=== PATIENT | male | born 1975 | race Caucasian/White ===

== ENCOUNTER → 2017-03-15 | Outpatient (CLI) | payer OTHER ==
[~2017-03-15] MED LIST: ADVIN50050 INH; AZAT50TA17 PO; HYDR12.524 PO; PRED-301 PO; REVIEWED; SULF800T23 PO; TIOTCAP INH
== END | disposition home or self-care (01) ==
LOC: C.MAMM 07:54
PROVIDERS: ATTEND Internal Medicine Rheumatology
DX: M31.30 Wegener's granulomatosis without renal involvement (principal); T38.0X1A Poisoning by glucocorticoids and synthetic analogues, accidental (unintentional), initial encounter; X58.XXXA Exposure to other specified factors, initial encounter; E55.9 Vitamin D deficiency, unspecified; M25.551 Pain in right hip; M85.89 Other specified disorders of bone density and structure, multiple sites

== ENCOUNTER → 2017-07-04 | Outpatient (CLI) | payer OTHER ==
[2017-07-04 10:27] LABS: BASO % 0.3 %; BASO ABS # 0.04 K/uL (0-0.2); COMPLETE YES; EOS % 2.5 %; HEMATOCRIT 45.3 % (42-52); IG% 0.6 %; LYMPH % 17.3 %; LYMPH ABS # 2.14 K/uL (1.2-3.4); MEAN CELL VOLUME 88.5 fL (80-100); MEAN CORPUSCULAR HEMOGLOBIN 30.1 pg (25-34); MONO % 4.7 %; NEUT % 74.6 %; PLATELET COUNT 320 K/uL (130-400); RED BLOOD COUNT 5.12 M/uL (4.7-6.1); WHITE BLOOD COUNT 12.36 K/uL (4.8-10.8)
[2017-07-04 10:46] LABS: CALCIUM URINE 12.7 mg/dl
[2017-07-04 10:52] LABS: ALT/SGPT 21 U/L (12-78); AST/SGOT 12 U/L (15-37); BLOOD UREA NITROGEN 14 mg/dl (7-18); BUN/CREATININE RATIO 16.4 (10-20); CALCIUM 8.6 mg/dl (8.5-10.1); CARBON DIOXIDE 27 mmol/L (21-32); CHLORIDE 105 mmol/L (98-107); CREATININE 0.87 mg/dl (0.60-1.40); GLUCOSE 137 mg/dl (70-99); SODIUM 141 mmol/L (136-145)
[2017-07-04 10:55] LABS: ALB/GLOB RATIO 0.9 (0.9-2); ALKALINE PHOSPHATASE 73 U/L (45-117)
== END | disposition home or self-care (01) ==
LOC: C.LAB1850 08:47
PROVIDERS: ATTEND Internal Medicine Rheumatology
DX: Z00.00 Encounter for general adult medical examination without abnormal findings (principal); M31.30 Wegener's granulomatosis without renal involvement; T38.0X1A Poisoning by glucocorticoids and synthetic analogues, accidental (unintentional), initial encounter; X58.XXXA Exposure to other specified factors, initial encounter; E55.9 Vitamin D deficiency, unspecified; M25.551 Pain in right hip

== ENCOUNTER → 2017-09-09 | Outpatient (CLI) | payer OTHER ==
--- NOTE | 2017-09-09 13:03 | DIAGNOSTIC IMAGING REPORT ---
CHEST 2 VIEWS ROUTINE CLINICAL HISTORY: M31.30 Wegeners [id number] Restrictive lung diseaseto b dyspnea COMPARISON STUDY: CT chest dated 03/16/2016 FINDINGS: Diffuse bilateral fibrotic and atelectatic changes similar as compared to the prior study. Bilateral hilar fullness considered unchanged in the prior exam. There is consistent with patient's history of Mercedez's granulomatosis. Diaphragms are smooth. HISTORY: Volumes are diminished. IMPRESSION: Diffuse bilateral parenchymal fibrotic infiltrative change. Similar to minimally progressive compared to a prior CT scan of 03/16/2016. Appearance consistent with that of mildly progressive Mercedez's granulomatosis. The above report was generated using voice recognition software. It may contain grammatical, syntax or spelling errors. Electronically signed by: Patrick Bull M.D. 09/09/2017 1:02 PM Dictated Date/Time: 09/09/2017 12:57 PM
== END | disposition home or self-care (01) ==
LOC: C.RAD 12:22
PROVIDERS: ATTEND Internal Medicine
DX: M31.30 Wegener's granulomatosis without renal involvement (principal); J98.4 Other disorders of lung

== ENCOUNTER → 2017-11-08 | Outpatient (CLI) | payer OTHER ==
[2017-11-08 12:13] LABS: BASO % 0.2 %; BASO ABS # 0.03 K/uL (0-0.2); EOS % 1.3 %; EOS ABS # 0.16 K/uL (0-0.5); HEMATOCRIT 45.7 % (42-52); HEMOGLOBIN 15.3 g/dL (14.0-18.0); IG# 0.05 K/uL (0.00-0.02); LYMPH % 11.9 %; LYMPH ABS # 1.46 K/uL (1.2-3.4); MEAN CELL VOLUME 90.7 fL (80-100); MEAN CORPUSCULAR HEMOGLOBIN 30.4 pg (25-34); MEAN CORPUSCULAR HGB CONC 33.5 g/dl (32-36); MEAN PLATELET VOLUME 10.6 fL (7.4-10.4); MONO % 6.5 %; NEUT % 79.7 %; NEUT ABS # 9.76 K/uL (1.4-6.5); PLATELET COUNT 302 K/uL (130-400); RED CELL DISTRIBUTION WIDTH CV 13.6 % (11.5-14.5); RED CELL DISTRIBUTION WIDTH SD 44.5 fL (36.4-46.3); WHITE BLOOD COUNT 12.26 K/uL (4.8-10.8)
[2017-11-08 12:28] LABS: ALBUMIN 3.2 gm/dl (3.4-5.0); ALT/SGPT 31 U/L (12-78); AST/SGOT 17 U/L (15-37); CREATININE 0.92 mg/dl (0.60-1.40)
[2017-11-08 12:31] LABS: ALKALINE PHOSPHATASE 64 U/L (45-117); TOTAL PROTEIN 7.8 gm/dl (6.4-8.2)
== END | disposition home or self-care (01) ==
LOC: C.LAB1850 10:27
PROVIDERS: ATTEND Internal Medicine Rheumatology
DX: M31.30 Wegener's granulomatosis without renal involvement (principal); M81.8 Other osteoporosis without current pathological fracture; E55.9 Vitamin D deficiency, unspecified; J20.9 Acute bronchitis, unspecified

== ENCOUNTER 2023-10-03 16:57 | Inpatient (IN) ==
[2023-10-03] MEDS ORDERED: CEFEPIME 2,000 MG/20 ML VIAL IV STA (18:02)
[2023-10-03] MEDS ORDERED: ALBUT/IPRATROP 3MG/0.5MG NEB 3 ML VIAL NEB STA ×2 (18:02→19:27)
[2023-10-03] MEDS ORDERED: methylPREDNISolone 125 MG/2 ML VIAL IV STA (18:02)
--- NOTE | 2023-10-03 18:11 | Emergency Department Note ---
Impression & Plan Hypoxia, SOB (shortness of breath), Pneumonia, Influenza, Elevated troponin ED Provider Note NAME: MASTER LUCIANO AGE: 47 SEX: M : 1975 ARRIVES VIA: Walk-In INFORMANT: [Patient] ED PROVIDER(S): [Master Mendez MD] CHIEF COMPLAINT: Shortness of breath HISTORY OF PRESENT ILLNESS: The patient is a 47-year-old male who presents to the ER with increasing dyspnea. The patient has a form of autoimmune disorder that affects his lungs. He is on chronic steroids, he takes Bactrim prophylactically. The patient states that a few months ago, he caught a cold and he states that afterwards, his breathing was not the same. In the last 2 weeks, he has noticed increasing dyspnea with exertion. Patient did travel to [place] recently, he just returned in fact. The patient states that he has been more short of breath the last several days in particular. He even feels short of breath at rest. Last night, he was sweating. He has had an increased cough, possibly a fever. He has noticed his heart rate has been quicker. There has been no increased leg swelling, no abdominal pain. The patient does wear oxygen at nighttime, he has oxygen to use during the day. He typically does not use O2 during the daytime but had to use it today. The patient states his had COVID around [place]. In addition, with all his traveling, he has been exposed to lot of people with cough and cold. PMHx/PSHx/Social Hx: See Below PHYSICAL EXAM: GENERAL: Patient is in no acute distress. HEENT: No acute trauma, normocephalic atraumatic, mucous membranes moist, no nasal congestion. NECK: No stridor, no adenopathy, no meningismus, trachea is midline. LUNGS: Diminished breath sounds bilaterally with wheezing bilaterally, no obvious respiratory distress. HEART: Mildly tachycardic, regular rhythm, no murmurs. ABDOMEN: Soft, nontender, no peritonitis. EXTREMITIES: No cyanosis, full range of motion of all the joints without pain or difficulty. Very mild bilateral pedal edema. NEUROLOGIC: Oriented x 3, no acute motor or sensory deficits, no focal weakness. SKIN: No jaundice, no diaphoresis. DIFFERENTIAL DIAGNOSIS: Bacteremia or sepsis, pneumonia, viral illness, bronchitis, COVID-19, influenza, RSV, CHF, cardiac ischemia, among others. EMERGENCY DEPARTMENT PROCEDURES: MEDICAL DECISION MAKING: There is no leukocytosis or concerning anemia. There is a normal platelet count. No concerning coagulopathy. VBG does not show acidosis. pCO2 was somewhat elevated at 60. The patient had a lower potassium at 3.1. No renal failure. Lactic acid level was not elevated making severe sepsis less likely. No concerning liver enzyme elevation. ECG shows a normal sinus rhythm, no obvious ST elevation. Cardiac enzyme testing x 1 is slightly elevated. This elevation could be secondary to cardiac injury or potentially just mismatch from his hypoxia. Respiratory bio fire returned positive for influenza A. Chest film shows bilateral parenchymal congestion worse compared to previous consistent with a multifocal pneumonia. On exam, the patient's lungs were diminished bilaterally. There was some wheezing bilaterally. The patient was found to be hypoxic in triage. His O2 saturation improved with supplemental O2 The patient received 2 DuoNebs. He was given IV Solu-Medrol, 125 mg. He was given IV cefepime as empiric antibiotic coverage. He received 1 L of IV saline for hydration. He received IV potassium, 10 mEq. He was given oral Tamiflu. The patient presents with hypoxia. He was found to have a worsening chest x- ray. He appears to have pneumonia, possibly bacterial, possibly viral. With his chronic lung disease, with his hypoxia, with his chest x-ray findings, admission is warranted. A CT chest was done, there was no PE, multifocal pneumonia was seen. I spoke with the patient and his family, I spoke with the hospice case manager. The on- call hospitalist was consulted. Prior/Outside records/notes reviewed: Family practice note from 08/23/2023 discussing his chronic conditions and the need to perform a dobutamine stress echo. ECG per my interpretation: Indication was shortness of breath. The ECG shows a normal sinus rhythm with a rate of 99. There are some inverted T waves in the anterior leads. There is no ST elevation, no PVCs. QTc is 441. No old ECGs available for comparison. Continuous Cardiac Monitoring per my interpretation: An order was placed for continuous cardiac monitoring. The monitor shows a rate of 104 with sinus tachycardia. Imaging/x-ray results per my interpretation: Chest x-ray shows bilateral parenchymal congestion worse compared to previous consistent with a multifocal pneumonia. Chronic Medical/Social conditions affecting care: Chronic lung disease, chronic immunosuppression. Care/Management discussed with: Case management, the on-call hospitalist. Level of care consideration(s): After review of the information above and other included data: --I believe the patient requires escalation of care to admission Critical Care Note: I have personally spent 53 minutes of critical care time in the direct management of this patient. This includes bedside care, interpretation of diagnostic studies, and testing, discussion with consultants, patient, and family members, and other required patient management activities. This 53 minutes is in excess of all separately billable procedures. 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 Surgical History History of tracheostomy History of left mastoidectomy Family History Grandfather (Maternal) Myocardial infarction Other No family history of adverse response to anesthesia No family history of bleeding disorder Denies family history of Colon cancer Ovarian cancer Prostate cancer Breast cancer Social History Smoking Status: Never smoker Hx Alcohol Use: Yes Hx Substance Use: No Preferred Language: Romanian Visual Impairment: No Limitations Hearing Ability: Hard of Hearing Beliefs That Will Affect Care: None marital status: current occupational status: employed current occupation: [employer] Feels Safe at Home: Yes Childhood Exposure to Second-Hand Smoke: Yes Dental Care, Regularly: Yes Physical Activity Frequency: Does not Exercise Seatbelt Use: always Sunscreen Use: Yes Allergies Allergies Allergy/AdvReac Type Severity Reaction Status Date / Time No Known Drug Allergies Allergy . Verified 10/03/23 21:06 Home Meds Home Medications Medication Instructions Recorded Confirmed cholecalciferol (vitamin D3) 125 5,000 units PO DAILY 04/25/19 10/03/23 mcg (5,000 unit) tablet rituximab 10 mg/mL See Rx Instructions IV UD 01/28/21 10/03/23 concentrate,intravenous albuterol sulfate 90 mcg/actuation 2 puff inhalation Q6H PRN 10/03/23 10/03/23 aerosol inhaler Shortness Of Breath Or Wheezing sulfamethoxazole 800 1 tab PO 3XWK 10/03/23 10/03/23 mg-trimethoprim 160 mg tablet Previous Rx's Medication Instructions Recorded CPAP Machine #1 ea 10/10/19 Oxygen Home #1 ea 11/22/19 prednisone 5 mg tablet 5 mg PO DAILY #30 tabs 06/13/20 Portable Oxygen #1 ea 07/25/20 Flutter Valve #1 ea 08/05/20 blood sugar diagnostic (OneTouch #200 ea 03/10/22 Verio test strips) lancets 30 gauge (OneTouch Delica #200 ea 03/10/22 Plus Lancet) lancets 30 gauge (OneTouch Delica #200 ea 03/10/22 Plus Lancet) hydrochlorothiazide 25 mg tablet 25 mg PO DAILY #90 tabs 12/20/22 tiotropium bromide 2.5 2 puff inhalation DAILY #3 Inhalers 01/12/23 mcg/actuation mist for inhalation (Spiriva Respimat) blood sugar diagnostic (OneTouch #200 ea 03/30/23 Verio test strips) metformin 500 mg tablet 1,000 mg (2 x 500 mg) PO BIDWMEAL 07/13/23 #360 tabs Results & Data (ED) Vital Signs Vital Signs - 24 hr 10/03/23 17:46 10/03/23 18:06 10/03/23 18:16 Temperature 36.8 C Temperature Source Temporal Artery Scan Pulse Rate 104 H 108 H Pulse Rate [Right Finger] Pulse Rate from SpO2 Sensor Pulse Rhythm Respiratory Rate 20 Respiratory Effort / Characteristics Non-Labored Spontaneous Respiratory Depth Normal Respiratory Pattern Regular Blood Pressure 133/64 Blood Pressure [Right Arm] Blood Pressure Mean 87 Blood Pressure Mean [Right Arm] Pulse Oximetry 77 L 97 Oxygen Delivery Method Room Air Non-rebreather Oxygen Flow Rate 15 Sepsis Recent Fever Within 48 Hours No Sepsis New/Unexplained Change in Mental Status No Sepsis Action Taken by Nursing No Action Required 10/03/23 18:22 10/03/23 18:22 10/03/23 18:40 Temperature Temperature Source Pulse Rate 106 H 103 H Pulse Rate [Right Finger] 106 H Pulse Rate from SpO2 Sensor 102 H Pulse Rhythm Regular Respiratory Rate 20 20 21 Respiratory Effort / Characteristics Labored Respiratory Depth Normal Respiratory Pattern Blood Pressure Blood Pressure [Right Arm] 128/99 Blood Pressure Mean Blood Pressure Mean [Right Arm] 108 Pulse Oximetry 96 96 98 Oxygen Delivery Method Non-rebreather Non-rebreather Oxygen Flow Rate 15 15 Sepsis Recent Fever Within 48 Hours Sepsis New/Unexplained Change in Mental Status Sepsis Action Taken by Nursing 10/03/23 18:47 10/03/23 19:10 10/03/23 19:20 Temperature Temperature Source Pulse Rate 96 H 101 H Pulse Rate [Right Finger] 100 H Pulse Rate from SpO2 Sensor 96 H 101 H Pulse Rhythm Respiratory Rate 22 20 21 Respiratory Effort / Characteristics Respiratory Depth Normal Respiratory Pattern Blood Pressure 123/93 Blood Pressure [Right Arm] 123/89 Blood Pressure Mean 99 Blood Pressure Mean [Right Arm] 100 Pulse Oximetry 97 98 94 Oxygen Delivery Method Non-rebreather Non-rebreather Oxymask Oxygen Flow Rate 15 15 10 Sepsis Recent Fever Within 48 Hours Sepsis New/Unexplained Change in Mental Status Sepsis Action Taken by Nursing 10/03/23 19:30 10/03/23 19:40 10/03/23 20:00 Temperature Temperature Source Pulse Rate 100 H 110 H 87 Pulse Rate [Right Finger] Pulse Rate from SpO2 Sensor 101 H 108 H 87 Pulse Rhythm Respiratory Rate 20 20 22 Respiratory Effort / Characteristics Respiratory Depth Respiratory Pattern Blood Pressure 122/89 Blood Pressure [Right Arm] Blood Pressure Mean 99 Blood Pressure Mean [Right Arm] Pulse Oximetry 94 96 94 Oxygen Delivery Method Oxymask Oxymask Oxymask Oxygen Flow Rate 10 10 10 Sepsis Recent Fever Within 48 Hours Sepsis New/Unexplained Change in Mental Status Sepsis Action Taken by Nursing 10/03/23 20:00 10/03/23 20:10 10/03/23 20:20 Temperature Temperature Source Pulse Rate 59 L 94 H Pulse Rate [Right Finger] Pulse Rate from SpO2 Sensor 58 L 93 H Pulse Rhythm Respiratory Rate 17 24 Respiratory Effort / Characteristics Respiratory Depth Respiratory Pattern Blood Pressure 122/90 Blood Pressure [Right Arm] Blood Pressure Mean 104 Blood Pressure Mean [Right Arm] Pulse Oximetry 92 94 Oxygen Delivery Method Oxymask Oxygen Flow Rate 10 Sepsis Recent Fever Within 48 Hours Sepsis New/Unexplained Change in Mental Status Sepsis Action Taken by [facility] Medications Current Medication List: was personally reviewed by me Laboratory Data Attestation: I reviewed the patient's lab results. 10/03/23 18:04 10/03/23 18:04 Lab Results 10/03/23 10/03/23 10/03/23 Range/Units 18:04 18:31 20:08 WBC 8.07 (4.8-10.8) K/ul RBC 5.39 (4.70-6.10) M/uL Hgb 15.7 (14.0-18.0) g/dl Hct 47.7 (42.0-52.0) % MCV 88.5 (80.0-100.0) fL MCH 29.1 (25.0-34.0) pg MCHC 32.9 (32.0-36.0) g/dL RDW Std Deviation 44.5 (36.4-46.3) fL RDW Coeff of Jennifer 13.9 (11.5-14.5) % Plt Count 272 (130-400) K/uL MPV 11.4 (9.4-12.4) fL Immature Gran % (Auto) 0.4 % Neut % (Auto) 73.6 % Lymph % (Auto) 9.2 % [place] % (Auto) 16.1 % Eos % (Auto) 0.2 % Baso % (Auto) 0.5 % Neut # (Auto) 5.94 (1.40-6.50) K/uL Lymph # (Auto) 0.74 L (1.20-3.40) K/uL [place] # (Auto) 1.30 H (0.11-0.59) K/uL Eos # (Auto) 0.02 (0.00-0.50) K/uL Baso # (Auto) 0.04 (0.00-0.20) K/uL Immature Gran # (Auto) 0.03 (0.01-0.20) K/uL PT 12.2 H (9.0-12.0) Seconds INR 1.1 (0.9-1.1) APTT 28 (21-31) Seconds PTT Ratio 1.0 VBG pH 7.39 (7.36-7.41) VBG pCO2 60 H (38-50) mmHg VBG pO2 78 mmHg VBG HCO3 36 mmol/L VBG O2 Saturation 96.0 % VBG Base Excess 9.1 mEq/L Sodium 140 (136-145) mmol/L Potassium 3.1 L (3.5-5.1) mmol/L Chloride 99 (98-107) mmol/L Carbon Dioxide 34 H (21-32) mmol/L Anion Gap 7 (3-11) BUN 15 (6-23) mg/dl Creatinine 0.71 (0.6-1.4) mg/dl Est Cr Clr Drug Dosing 156.1 ml/min Est GFR ( Amer) 131.3 ml/min Est GFR (Non-Af Amer) 113.3 ml/min BUN/Creatinine Ratio 21.1 H (10-20) Glucose 165 H (70-99(Fasting)) mg/dl Lactate 1.4 (0.4-2.0) mmol/L Calcium 9.2 (8.6-10.3) mg/dl Magnesium 1.9 (1.7-2.4) mg/dl Total Bilirubin 1.3 H (0.2-1.0) mg/dl Direct Bilirubin 0.3 H (0-0.2) mg/dl AST 22 (13-39) U/L ALT 30 (7-52) U/L Alkaline Phosphatase 63 (34-104) U/L Troponin I High Sens 42.8 H 38.1 H (0-20) pg/ml Total Protein 7.0 (6.0-8.3) gm/dl Albumin 4.0 (3.4-5.0) gm/dl Procalcitonin 0.08 (0-0.5) ng/ml Nasal Influ A H1 2008 PCR DETECTED A* (NotDetected) Adenovirus (PCR) Not Detected (NotDetected) B. pertussis DNA (PCR) Not Detected (NotDetected) B.parapertussis DNA PCR Not Detected (NotDetected) C. pneumoniae DNA (PCR) Not Detected (NotDetected) Coronavirus OC43 (PCR) Not Detected (NotDetected) Coronavirus HKU1 (PCR) Not Detected (NotDetected) Coronavirus 229E (PCR) Not Detected (NotDetected) SARS-CoV-2 (PCR) Not Detected (NotDetected) Coronavirus NL63 (PCR) Not Detected (NotDetected) Human Metapneumovir PCR Not Detected (NotDetected) Influenza Type B (PCR) Not Detected (NotDetected) M. pneumoniae (PCR) Not Detected (NotDetected) Parainfluenza 1 (PCR) Not Detected (NotDetected) Parainfluenza 2 (PCR) Not Detected (NotDetected) Parainfluenza 3 (PCR) Not Detected (NotDetected) Parainfluenza 4 (PCR) Not Detected (NotDetected) RSV (PCR) Not Detected (NotDetected) Entero/Rhino (PCR) Not Detected (NotDetected) Administered Medications Potassium Chloride (K Owen / Wtr) 10 meq in 100 mls @ 100 mls/hr IV Q1H MARIJA; Protocol Stop: 10/04/23 00:59 Last Admin: 10/03/23 21:40 Dose: 100 mls/hr Documented By: KWAME Sodium Chloride (Nss) 1,000 mls @ 125 mls/hr IV .Q8H MARIJA Stop: 11/02/23 21:59 Last Admin: 10/03/23 22:31 Dose: 125 mls/hr Documented By: KWAME Discontinued Medications Albuterol (Albut/Ipratrop 3mg/0.5mg Neb 3 Ml Vial) 3 ml NEB NOW STA; Protocol Stop: 10/03/23 18:03 Last Admin: 10/03/23 18:09 Dose: 3 ml Documented By: YESENIA Albuterol (Albut/Ipratrop 3mg/0.5mg Neb 3 Ml Vial) 3 ml NEB NOW STA; Protocol Stop: 10/03/23 19:28 Last Admin: 10/03/23 19:32 Dose: 3 ml Documented By: JULIO Cefepime HCl (Maxipime) 2,000 mg in 20 mls @ 5 mls/min IV NOW STA; Protocol Stop: 10/03/23 18:05 Last Admin: 10/03/23 18:09 Dose: 5 mls/min Documented By: YESENIA Potassium Chloride (K Owen / Wtr) 10 meq in 100 mls @ 100 mls/hr IV ONE ONE Stop: 10/03/23 20:07 Last Infusion: 10/03/23 21:40 Dose: Infused Documented By: Admin: 10/03/23 19:32 Dose: 100 mls/hr Documented By: JULIO Sodium Chloride (Nss) 1,000 mls @ 999 mls/hr IV .Q1H1M ONE Stop: 10/03/23 20:27 Last Infusion: 10/03/23 21:22 Dose: Infused Documented By: Admin: 10/03/23 19:32 Dose: 999 mls/hr Documented By: JULIO Ioversol (Optiray 320 125ml) 118 ml IV ONCE ONE Stop: 10/03/23 19:06 Last Admin: 10/03/23 19:07 Dose: 118 ml Documented By: MEGA Methylprednisolone (Methylprednisolone 125 Mg/2 Ml Vial) 125 mg IV NOW STA Stop: 10/03/23 18:03 Last Admin: 10/03/23 18:09 Dose: 125 mg Documented By: YSEENIA Oseltamivir Phosphate (Oseltamivir Phosphate 75 Mg Cap) 75 mg PO NOW STA; Protocol Stop: 10/03/23 19:54 Last Admin: 10/03/23 21:40 Dose: 75 mg Documented By: KWAME Imaging Data Radiologist's Impression: Chest CTA 10/03/23 18:02 Exam(s): CTA CHEST IV Amt: 118ML OPTIRAY 320 EXAM: CT Angiography Chest With Intravenous Contrast CLINICAL HISTORY: Reason for exam: PE. TECHNIQUE: Axial computed tomographic angiography images of the chest with intravenous contrast. CTDI is 28.14 mGy and DLP is 824.38 mGy-cm. Automated exposure control was utilized for the study. A dose lowering technique was utilized adhering to the principles of ALARA. MIP reconstructed images were created and reviewed. COMPARISON: No relevant prior studies available. FINDINGS: Pulmonary arteries: Unremarkable. No acute pulmonary embolism. Aorta: No acute findings. No thoracic aortic aneurysm. Lungs: Airspace consolidations in the bilateral lungs, consistent with multilobar pneumonia. Pleural space: Unremarkable. No pleural effusion or pneumothorax. Heart: Unremarkable. No cardiomegaly. No significant pericardial effusion. No evidence of RV dysfunction. Bones/joints: No acute fracture. No dislocation. Soft tissues: Unremarkable. Lymph nodes: Unremarkable. No enlarged lymph nodes. Liver: Hepatic steatosis. IMPRESSION: 1. No acute pulmonary embolism. 2. Airspace consolidations in the bilateral lungs, consistent with multilobar pneumonia. Electronically signed by: Jay Vizcaino MD 10/03/23 19:43 PM Chest X-Ray 10/03/23 18:02 SINGLE VIEW CHEST CLINICAL HISTORY: Sepsis FINDINGS: An AP, portable, upright chest radiograph is compared to study dated 06/26/2019 and correlated with chest CT dated 10/15/2021. The cardiomediastinal silhouette is unremarkable. Multifocal parenchymal scarring is again seen throughout both lungs. There is also multifocal airspace consolidation which is significantly increased from previous. No large pleural effusion or pneumothorax is identified. The bony thorax is grossly intact. IMPRESSION: Multifocal airspace consolidation is seen throughout both lungs, superimposed on changes of chronic lung disease. Correlate clinically for evidence of pneumonia. Radiographic follow-up to resolution is recommended. ACT 112: Negative or not required by law. Electronically signed by: Master Oseguera M.D. 10/03/2023 7:16 PM Discharge Plan Visit Data Chief Complaint: Shortness of Breath/Dyspnea Stated Complaint: SOB ED Provider: Master Mendez Discharge Problem: Hypoxia, SOB (shortness of breath), Pneumonia, Influenza, Elevated troponin Patient Disposition: Admitted As Inpatient Condition: Serious Discharge Instructions Interventions: ED Discharge Assessment Last Done: 10/03/23 22:58 Discharge Problem: Pneumonia Qualifiers: Pneumonia type: due to unspecified organism Laterality: bilateral Lung location: unspecified part of lung Qualified Code(s): J18.9 - Pneumonia, unspecified organism
[2023-10-03 18:44] LABS: Basophils # (auto) 0.04 K/uL (0.00-0.20); Basophils % (auto) 0.5 %; Eosinophils # (auto) 0.02 K/uL (0.00-0.50); Eosinophils % (auto) 0.2 %; Hematocrit (blood only) 47.7 % (42.0-52.0); Hemoglobin 15.7 g/dl (14.0-18.0); Immature Granulocytes # (auto) 0.03 K/uL (0.01-0.20); Immature Granulocytes % (auto) 0.4 %; Lymphocytes # (auto) 0.74 K/uL (1.20-3.40); Lymphocytes % (auto) 9.2 %; Mean Corpuscular Hemoglobin 29.1 pg (25.0-34.0); Mean Corpuscular Hgb Conc 32.9 g/dL (32.0-36.0); Mean Corpuscular Volume 88.5 fL (80.0-100.0); Mean Platelet Volume 11.4 fL (9.4-12.4); Monocytes % (auto) 16.1 %; Neutrophils # (auto) 5.94 K/uL (1.40-6.50); Neutrophils % (auto) 73.6 %; Platelet Count 272 K/uL (130-400); RDW Coefficient of Variation 13.9 % (11.5-14.5); RDW Standard Deviation 44.5 fL (36.4-46.3); Red Blood Count 5.39 M/uL (4.70-6.10); White Blood Count 8.07 K/ul (4.8-10.8)
[2023-10-03 18:48] LABS: Base Excess VBG 9.1 mEq/L; HCO3 VBG 36 mmol/L; PCO2 VBG 60 mmHg (38-50); PO2 VBG 78 mmHg; pH VBG 7.39 (7.36-7.41)
[2023-10-03 18:56] LABS: BUN Creatinine Ratio 21.1 (10-20); Bilirubin Direct 0.3 mg/dl (0-0.2); Bilirubin,Total 1.3 mg/dl (0.2-1.0); Calcium 9.2 mg/dl (8.6-10.3); Creatinine Clr Calc Pharmacy 156.1 ml/min; Est GFR (African American) 131.3 ml/min; Est GFR (Non-African American) 113.3 ml/min; Magnesium 1.9 mg/dl (1.7-2.4); Potassium 3.1 mmol/L (3.5-5.1)
[2023-10-03 19:00] LABS: Troponin I High Sensitivity 42.8 pg/ml (0-20)
[2023-10-03] MEDS ORDERED: OPTIRAY 320 125ml IV ONE (19:05)
[2023-10-03 19:07] LABS: INR 1.1 (0.9-1.1); Partial Thromboplastin Time 28 Seconds (21-31); Prothrombin Time 12.2 Seconds (9.0-12.0)
[2023-10-03] MEDS ORDERED: POTASSIUM CHLORIDE / WTR 10 MEQ/100 ML PLCT IV ONE (19:08)
--- NOTE | 2023-10-03 19:18 | XRay Report ---
SINGLE VIEW CHEST CLINICAL HISTORY: Sepsis FINDINGS: An AP, portable, upright chest radiograph is compared to study dated 06/26/2019 and correlat ed with chest CT dated 10/15/2021. The cardiomediastinal silhouette is unremarkable. Multifocal parenc hymal scarring is again seen throughout both lungs. There is also multifocal airspace consolidation w hich is significantly increased from previous. No large pleural effusion or pneumothorax is identifie d. The bony thorax is grossly intact. IMPRESSION: Multifocal airspace consolidation is seen throughout both lungs, superimposed on changes of chronic lung disease. Correlate clinically for evidence of pneumonia. Radiographic follow-up to re solution is recommended. ACT 112: Negative or not required by law. Electronically signed by: Antione Oseguera M.D. 10/03/2023 7:16 PM
[2023-10-03] MEDS ORDERED: SODIUM CHLORIDE 0.9% 1,000 ML IV ONE (19:27)
[2023-10-03 19:32] LABS: Adenovirus PCR Not Detected (NotDetected); Bordetella parapertussis PCR Not Detected (NotDetected); Bordetella pertussis PCR Not Detected (NotDetected); Chlamydia pneumoniae PCR Not Detected (NotDetected); Coronavirus 229E PCR Not Detected (NotDetected); Coronavirus CoV-2 (COVID19)PCR Not Detected (NotDetected); Coronavirus HKU1 PCR Not Detected (NotDetected); Coronavirus NL63 PCR Not Detected (NotDetected); Coronavirus OC43PCR Not Detected (NotDetected); Human Metapneumovirus PCR Not Detected (NotDetected); Influenza B PCR Not Detected (NotDetected); Mycoplasma pneumoniae PCR Not Detected (NotDetected); Parainfluenza Virus 1 PCR Not Detected (NotDetected); Parainfluenza Virus 2 PCR Not Detected (NotDetected); Parainfluenza Virus 3 PCR Not Detected (NotDetected); Parainfluenza Virus 4 PCR Not Detected (NotDetected); Respiratory Syncytial VirusPCR Not Detected (NotDetected); Rhinovirus/Enterovirus PCR Not Detected (NotDetected)
--- NOTE | 2023-10-03 19:44 | CT Scan Report ---
Exam(s): CTA CHEST IV Amt: 118ML OPTIRAY 320 EXAM: CT Angiography Chest With Intravenous Contrast CLINICAL HISTORY: Reason for exam: PE. TECHNIQUE: Axial computed tomographic angiography images of the chest with intravenous contrast. CTDI is 28.14 mGy and DLP is 824.38 mGy-cm. Automated exposure control was utilized for the study. A dose lowering technique was utilized adhering to the principles of ALARA. MIP reconstructed images were created and reviewed. COMPARISON: No relevant prior studies available. FINDINGS: Pulmonary arteries: Unremarkable. No acute pulmonary embolism. Aorta: No acute findings. No thoracic aortic aneurysm. Lungs: Airspace consolidations in the bilateral lungs, consistent with multilobar pneumonia. Pleural space: Unremarkable. No pleural effusion or pneumothorax. Heart: Unremarkable. No cardiomegaly. No significant pericardial effusion. No evidence of RV dysfunction. Bones/joints: No acute fracture. No dislocation. Soft tissues: Unremarkable. Lymph nodes: Unremarkable. No enlarged lymph nodes. Liver: Hepatic steatosis. IMPRESSION: 1. No acute pulmonary embolism. 2. Airspace consolidations in the bilateral lungs, consistent with multilobar pneumonia. Electronically signed by: Jay Vizcaino MD 10/03/23 19:43 PM
[2023-10-03 19:49] LABS: Influenza A (H1 2009) PCR DETECTED (NotDetected)
[2023-10-03] MEDS ORDERED: OSELTAMIVIR PHOSPHATE 75 MG CAP PO STA (19:53)
--- NOTE | 2023-10-03 20:59 | History & Physical Report ---
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 Now stable on 10 L of oxygen via oxime mask, and admitted to the hospital for continued management of influenza A (H1N1) + multilobar pneumonia found on CT chest. Influenza A ([id number])/Community-Acquired Pneumonia -Stable. Afebrile. WBC normal. Mild hypercarbia on VBG. Procalcitonin negative. MRSA nares negative. 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 -S/p oseltamivir, IV cefepime (2 g x 1 dose) in the ED. * Admit to MedSurg telemetry * Continue oseltamivir 75 mg twice daily (x 5 days total) * Initiated empiric CAP regimen: Augmentin 875-125 twice daily x 5 days, azithromycin 500/250 mg x 5 days total (500 mg day 1, 250 mg days 2-5) * Home steroids, 3X/week Bactrim held * Isolation droplet precautions * Scheduled DuoNeb every 4 hours x 24 hours, then home albuterol inhaler as needed * Flutter valve Hypokalemia -S/p 10 mEq KCl in the ED. -Additional 50 mEq KCl repleted on admission. * Trend K+ on a.m. labs Granulomatosis with polyangiitis (without renal involvement) -Predominantly pulmonary manifestation. On chronic daily prednisone, maintenan ce inhaler, as needed Bactrim. * Daily prednisone, thrice weekly Bactrim held as above * Continue home Incruse Ellipta Type 2 Diabetes -Takes metformin 1000 mg twice daily. Last Hgb A1c-6.3% in * Home metformin held * SSI insulin (CF-40, CR-20, BSG range 100-140), ACHS glucose checks per protocol Hypertension * Continue home hydrochlorothiazide 25 mg Code: Full code Dispo: Med-Surg telemetry FEN/GI: Carb consistent DVT Prophylaxis: Lovenox 40 mg q24h PT/OT: No Consults: None Case Management: No (2) Community acquired pneumonia: (3) Granulomatosis with polyangiitis without renal involvement: (4) Diabetes mellitus: (5) Hypertension: History of Present Illness Primary Care Provider: Ravi Parsons MD Antione is a 47-year-old man with a past medical history of granulomatosis with polyangiitis (w/o renal involvement) on chronic steroids (prednisone 5 mg), type 2 diabetes, hypertension, who presented to the emergency room with progressive dyspnea on exertion x 2 weeks. Per the patient, he caught a cold months ago since which his breathing has not been the same. ROS + recent travel ([place] recently returned), sick exposures, palpitations, cough, subjective fever, and night sweats. He denies nausea, leg swelling, or abdominal pain. 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 He also takes Bactrim prophylactically. On arrival to the emergency room, vital signs are notable for sinus tachycardia at 104 bpm, and oxygen saturation of 77% requiring 15 L of supplementary oxygen via nonrebreather mask. Notable labs include: Hypercarbia on VBG (60), K-3.1, BSG-165, T. bili-1.3, and hs troponin-42.8 (now down trended-38.1). Respiratory viral panel also returned positive for influenza A (H1-2009). WBC, procalcitonin, MRSA nares were all negative. CXR showed multifocal airspace consolidation bilaterally on top of chronic changes. Subsequent CTA chest showed "airspace consolidations in the bilateral lungs, consistent with multilobar pneumonia." Hospitalist service was then consulted for admission. On admission, patient corroborates HPI. ROS + cough, fatigue, mild headache. He denies headache, chest pain, shortness of breath, nausea, abdominal pain, or leg swelling. Allergies Allergy/AdvReac Type Severity Reaction Status Date / Time No Known Drug Allergies Allergy . Verified 10/03/23 21:06 Home Medications Medication Instructions Recorded Confirmed Type cholecalciferol (vitamin D3) 125 5,000 units PO DAILY 04/25/19 10/03/23 History mcg (5,000 unit) tablet CPAP Machine #1 ea 10/10/19 08/23/23 Rx Oxygen Home #1 ea 11/22/19 08/23/23 Rx prednisone 5 mg tablet 5 mg PO DAILY #30 tabs 06/13/20 10/03/23 Rx Portable Oxygen #1 ea 07/25/20 08/23/23 Rx Flutter Valve #1 ea 08/05/20 08/23/23 Rx rituximab 10 mg/mL See Rx Instructions IV UD 01/28/21 10/03/23 History concentrate,intravenous blood sugar diagnostic (OneTouch #200 ea 03/10/22 08/23/23 Rx Verio test strips) lancets 30 gauge (OneTouch Delica #200 ea 03/10/22 08/23/23 Rx Plus Lancet) lancets 30 gauge (OneTouch Delica #200 ea 03/10/22 08/23/23 Rx Plus Lancet) hydrochlorothiazide 25 mg tablet 25 mg PO DAILY #90 tabs 12/20/22 10/03/23 Rx tiotropium bromide 2.5 2 puff inhalation DAILY #3 Inhalers 01/12/23 10/03/23 Rx mcg/actuation mist for inhalation (Spiriva Respimat) blood sugar diagnostic (OneTouch #200 ea 03/30/23 08/23/23 Rx Verio test strips) metformin 500 mg tablet 1,000 mg (2 x 500 mg) PO BIDWMEAL 07/13/23 10/03/23 Rx #360 tabs albuterol sulfate 90 mcg/actuation 2 puff inhalation Q6H PRN 10/03/23 10/03/23 History aerosol inhaler Shortness Of Breath Or Wheezing sulfamethoxazole 800 1 tab PO 3XWK 10/03/23 10/03/23 History mg-trimethoprim 160 mg tablet Past Med/Surg History Medical History Hyperglycemia Weight loss Acute respiratory failure with hypoxia History of resection and anastomosis of trachea Vitamin D deficiency Steroid-induced osteoporosis Restrictive lung disease Mixed conductive and sensorineural hearing loss of both ears Lung nodules Lung infiltrate on CT Long-term use of immunosuppressant medication Hypertension Granulomatosis with polyangiitis without renal involvement Surgical History History of tracheostomy History of left mastoidectomy Family History Grandfather (Maternal) Myocardial infarction Other No family history of adverse response to anesthesia No family history of bleeding disorder Denies family history of Colon cancer Ovarian cancer Prostate cancer Breast cancer Social History Smoking Status: Never smoker Hx Alcohol Use: Yes Hx Substance Use: No Preferred Language: Romanian Communication Ability: Effective Visual Impairment: No Limitations Hearing Ability: Hard of Hearing Collar Runner Required: No Beliefs That Will Affect Care: None marital status: Current Living Situation: Spouse current occupational status: employed 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 Normal conjunctiva, anicteric sclera. Oropharynx normal. Respiratory: Moderate respiratory effort. Diffuse bilateral rhonchi, end expiratory wheezes heard on auscultation. Cardiovascular: Tachycardic. Regular rate. No murmurs, gallops, or rubs. No pedal edema. GI: Soft abdomen with normal bowel sounds heard on auscultation. Nontender x4 quadrants Neuro: Alert and oriented x3. Results & Data Results & Data Vital Signs (Past 12 Hours) Vital Signs Temp Pulse Pulse Resp BP BP Pulse Ox 10/03/23 20:20 94 H 24 94 10/03/23 20:10 59 L 17 92 10/03/23 20:00 122/90 10/03/23 20:00 87 22 94 10/03/23 19:40 110 H 20 96 10/03/23 19:30 100 H 20 122/89 94 10/03/23 19:20 101 H 21 94 10/03/23 19:10 96 H 20 123/93 98 10/03/23 18:47 100 H 22 123/89 97 10/03/23 18:40 103 H 21 98 10/03/23 18:22 106 H 20 96 10/03/23 18:22 106 H 20 128/99 96 10/03/23 18:16 97 10/03/23 18:06 108 H 10/03/23 17:46 36.8 C 104 H 20 133/64 77 L O2 Del Method O2 Flow Rate 10/03/23 20:20 Oxymask 10 10/03/23 20:10 10/03/23 20:00 10/03/23 20:00 Oxymask 10 10/03/23 19:40 Oxymask 10 10/03/23 19:30 Oxymask 10 10/03/23 19:20 Oxymask 10 10/03/23 19:10 Non-rebreather 15 10/03/23 18:47 Non-rebreather 15 10/03/23 18:40 10/03/23 18:22 Non-rebreather 15 10/03/23 18:22 Non-rebreather 15 10/03/23 18:16 Non-rebreather 15 10/03/23 18:06 10/03/23 17:46 Room Air Supervising Physician Co-Signing Physician Notes Attending addendum: I have physically seen this patient, have supervised the medical residents activities, and agree with the H&P unless as otherwise noted. Assessment and Plan: Influenza A H1 N1 subtype 2009 pandemic strain/secondary bacterial pneumonia/granulomatosis with angiitis/formerly Mercedez's- From the ED received the following: Cefepime IV, DuoNeb, Solu-Medrol 125 mg IV, second DuoNeb treatment, Tamiflu and [address] angiography demonstrates multi lobar pneumonia BioFire negative other than for H1N1 Tamiflu 75 mg p.o. twice daily Cefepime 2 g IV every 12 hours Azithromycin 500 mg IV daily Duonebs every 4 hours while awake and every 2 hours when necessary. Oxygen titration to maintain pulse ox 92-94% Continue outpatient inhalers Diabetes mellitus- Holding metformin Insulin coverage as noted Resident Activity Tracking Resident Involvement: Resident Care Provided Care Provided: Adult Hospital Medicine (2) Community acquired pneumonia Laterality: unspecified laterality Qualified Code(s): J18.9 - Pneumonia, unspecified organism (4) Diabetes mellitus Diabetes mellitus complication status: without complication Diabetes mellitus long term care phlebotomist insulin use: without residential use Diabetes mellitus type: type 2 Qualified Code(s): E11.9 - Type 2 diabetes mellitus without complications
[2023-10-03] MEDS: POTASSIUM CHLORIDE / WTR 10 MEQ/100 ML PLCT IV SCH (21:40)
[2023-10-03] MEDS: SODIUM CHLORIDE 0.9% 1,000 ML IV SCH (22:31)
[2023-10-03] MEDS ORDERED: GLUCOSE 10 TAB/TUBE PO PRN (22:58)
[2023-10-03] MEDS ORDERED: NON-FORMULARY MEDICATION (Oxygen Home Liters per Minute) SCH (22:58)
[2023-10-03] MEDS ORDERED: CARBOHYDRATES FOR HYPOGLYCEMIA PO PRN (22:58)
[2023-10-03] MEDS ORDERED: DEXTROSE 50% 50 ML SYRINGE IV PRN (22:58)
[2023-10-03] MEDS ORDERED: ALBUTEROL HFA 8 GM INHALER INH PRN (22:58)
[2023-10-03] MEDS ORDERED: GLUCOSE 40% GEL 15 GM TUBE PO PRN (22:58)
[2023-10-03] MEDS ORDERED: GLUCAGON FOR INJ 1 MG VIAL SQ PRN (22:58)
[2023-10-03] MEDS ORDERED: NON-FORMULARY MEDICATION (Cpap Machine misc) SCH (22:58)
[2023-10-03] MEDS ORDERED: ALBUT/IPRATROP 3MG/0.5MG NEB 3 ML VIAL INH PRN (22:58)
[2023-10-03] MEDS: ALBUT/IPRATROP 3MG/0.5MG NEB 3 ML VIAL NEB SCH (23:30)
--- OUTSIDE RECORDS SUMMARY | 2023-10-04 00:02 | External Medical Summary | Summary of Care ---
Author Name Unknown Organization [facility] Address [address] [place] [address] Phone [phone] Care Team Providers Care Supervisor Production Department Name Role Phone Ravi Orantes MD [facility] Care Provider Encounter Details Date Type Department Care Team (Late st Contact Info) Description 09/05/2023 Orders Only Rheumatology, [address] [address] Grady Porras MD [address] [place] [id number] Allergies No known active allergiesdocumented as of this encounter (statuses as of 09/05/2023) Medications Medication Sig Dispensed Refills Start Date End Date Status hydrochlorothiazide (HYDRODIURIL) 25 MG TabletIndications:HTN, goal below 140/90 TAKE 1 TABLET EVERY DAY 90 Tab 1 11/16/2016 Active Cholecalciferol (VITAMIN D3) 5000 units Tablet Take 1 Tablet by mouth in the morning. 1 daily. 0 Active VENTOLIN HFA 108 (90 Base) MCG/ACT inhaler As needed 1 11/22/2018 Act lang Spiriva Respimat 2.5 MCG/ACT Inhalation Aerosol Solution 0 05/22/2021 Active Ciprofloxacin-Dexameth asone 0.3-0.1 % Otic Suspension (Cipro-Dex) INSTILL 4 DROPS INTO THE EAR(S) TWICE A DAY 0 06/22/2022 Active OneTouch Verio In Vitro Strip CHECK BLOOD SUGAR TWICE A DAY 0 04/29/2022 Active metFORMIN HCl 500 MG Oral Tablet (Glucophage) 0 06/07/2022 Active Sulfamethoxazole-Trime thoprim 800-160 MG Oral Tablet (Bactrim DS)Indications:Granulo matosis with polyangiitis without renal involvement (HCC),ILD (interstitial lung disease) (HCC),custodial current use of systemic steroids TAKE 1 TAB BY MOUTH ONCE A DAY ON TUESDAY, TUESDAY, AND TUESDAY ONLY. 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 Most lesions are unchanged; however, there are several lesions identified in the left lower lobe which have increased in size. Continued followup is recommended. Pt asymptomatic Followed by Dr. Oconnor ADVANCE DIRECTIVE INFORMATION 06/21/2005 Overview: No, Advance Directive brochure given to patient at prior appointment. Other tracheostomy complication 12/18/2004 Dermatitis 10/29/2002 Sebaceous cyst 10/29/2002 Granulomatosis with polyangiitis Overview: Yag laser laryngoscopy for subglottic stenosis- successful 02/27 Dr. Jeremias AHN ICD-10 update of inactive term documented as of this encounter (statuses as of 09/05/2023) Immunizations Name Administration Dates Next Due COVID-19 mRNA, LNP-s, No Pre serve, 2-Dose Series (Moderna) 05/16/2021,11/22/2020,10/18/2020 Pneumococcal Polysaccharide PPV23 (Pneumovax) 11/24/2011,11/24/2011(Deferred: Patient Refused - not today),08/26/2006 Seasonal Influenza, Quadriva lent, No Preserve, IM 07/27/2021,10/15/2015 Seasonal Influenza, Split, I IV3, With Preserve, Inj 07/09/2014,07/02/2013,06/21/2012,08/25,08/05/2010,07/15/2008,07/17/2007 ,08/26/2006 TDAP (age 11 and older)(Adacel) 09/30/2008 documented as of this encounter Social History Tobacco Use Types Packs/Day Years Used Date Smoking Tobacco: Never Smokeless Tobacco: Never Alcohol Use Standard Drinks/Week Comments Yes 0 (1 standard drink = 0.6 oz pur e alcohol) very rare Sex and Gender Information Value Date Recorded Sex Assigned at Male 01/11/2022 9:52 PM EDT Gender Identity Male 01/11/2022 9:52 PM EDT Sexual Orientation Straight 01/11/2022 9: 52 PM EDT Job Start Date Occupation Industry Not on file Not on file Not on file documented as of this encounter Plan of Treatment Upcoming Encounters Date Type Department Care Team (Late st Contact Info) Description 09/08/2023 9:00 AM EST Hem/Onc Treatment Hematology/Oncology Treatment, [place] [address] [place] [address] Gwendolyn, Chair 6 Hem Onc Scenery [address] [place] [address] 10/12/2023 4:00 PM EST Office Visit Rheumatology [place] [id number] [place] [address] Grady Porras MD [address] [place] [address] Health Maintenance Due Date Last Done Comments Hepatitis B (1 of 3 - 3-dose series) 1977 HIV Screening 1992 Pneumococcal Vaccine: Pediatrics (0 to 5 Years) and At-Risk Patients (6 to 64 Years) (3 - PCV) 11/23/2012 11/24/2011, 08/26/2006 Depression Screening 10/15/2016 10/15/2015 DTaP,Tdap,and Td Vaccines (2 - Td or Tdap) 09/30/2018 09/30/2008 Cologuard 2022 Colonoscopy 2022 Colorectal Cancer Screening 2022 Fecal Occult Blood Test 2022 Sigmoidoscopy 2022 COVID-19 Vaccine ( season) 2023 05/16/2021, 11/22/2020, 10/18/2020 Influenza Vaccine (FLU shot) (#1) 2023 08/05/2021, 07/27/2021, 06/04/2020, Additional history exists Albumin/Creatinine Ratio 10/20/2023 10/20/2020, 02/24 GFR 02/09/2024 02/08/2023, 05/27, 04/20/2022, Additional history exists Lipid Panel 03/12/2025 03/12/2020, 09/27, 01/09/2014, Additional history exists Diabetes Screening 02/08/2026 02/08/2023, 0 06/10/2022, 04/20/2022, Additional history exists GARDASIL-HPV IMMUNIZATION SERIES Aged Out No longer eligible based on patient's age to complete this topic MENINGOCOCCAL (MENACTRA/MENVEO) Aged Out No longer eligible based on patient's age to complete this topic documented as of this encounter Medical Devices Not on filedocumented as of this encounter Care Teams Supervisor Production Department Relationship Specialty Start Date End Date Ravi Orantes MD [address] [place] [address] PCP - General Internal Medicine 11/01/18 documented as of this encounter
--- OUTSIDE RECORDS SUMMARY | 2023-10-04 00:02 | External Medical Summary | Summary of Care ---
Author Name Unknown Organization [facility] Address [address] [place] [address] Phone [phone] Care Team Providers Care Shirrer Name Role Phone Ravi Orantes MD [facility] Care Provider Reason for Visit * Reason Comments IV Therapy Rituximab. * Episode Based Medications (Routine) - Authorized Specialty Diagnoses / Procedures Referred By Contac t Referred To Contact Diagnoses Granulomatosis with polyangiitis without renal involvement (HCC) Procedures RI INJECTION, RITUXIMAB-PVVR, BIOSIMILAR, (RUXIENCE), 10 MG Grady Porras MD [address] [place], [place] [address] Anc Hem/Onc Scenery Gwendolyn DEPT CLOSED - 08/09/23 [address] [place] [phone] Referral ID Status Reason Start Date Expiration Date V isits Requested Visits Authorized [id number] Authorized 08/10/2023 02/05/2024 99 99 Encounter Details Date Type Department Care Team (Latest Contact Info) Description 09/08/2023 9:00 AM EST Hem/Onc Treatment Hematology/Oncolog y Treatment, [place] [address] [place] [address] Gwendolyn, Chair 6 Hem Onc Scenery [address] [place] [address] Granulomatosis with polyangiitis without renal involvement (HCC)* Allergies No known active allergiesdocumented as of this encounter (statuses as of 09/08/2023) Medications Medication Sig Dispensed Refills Start Date [...] without renal involvement (HCC),ILD (interstitial lung disease) (HCC),longterm current use of systemic steroids TAKE 1 TAB BY MOUTH ONCE A DAY ON TUESDAY, TUESDAY, AND TUESDAY ONLY. 12 Tablet 12 11/10/2022 Active predniSONE 5 MG Oral Tablet (Deltasone) TAKE 1 TABLET BY MOUTH EVERY DAY 90 Tablet 1 07/04/2023 Active documented as of this encounter (statuses as of 09/08/2023) Active Problems Problem Noted Date Diagnosed Date Encounter for long-term (current) use of medicat ions 02/08/2023 longterm current use of systemic steroids 06/28 ILD [...] as of this encounter (statuses as of 09/08/2023) Immunizations Name Administration Dates Next Due COVID-19 [...] on file documented as of this encounter Last Filed Vital Signs Vital Sign Reading Time Taken Comments Blood Pressure 141/83 09/08/2023 11:33 AM EST Pulse 92 09/08/2023 11:33 AM EST Temperature 36.4 C (97.5 F) 09/08/2023 9:10 AM ES T Respiratory Rate 18 09/08/2023 9:10 AM EST Oxygen Saturation 92% 09/08/2023 9:10 AM EST Inhaled Oxygen Concentration - - Weight - - Height - - Body Mass Index - - documented in this encounter Nursing Notes * Luh White RN - 09/08/2023 3:23 PM EST Pt completed treatment without issues. PIV removed. Goals: Pt will remain free from injury. Possible barriers to meeting goals: risk of reaction, ambulation with IV pole/drowsiness d/t benadryl pretreat Stability of the patient: Moderately stable - low risk of patient condition declining or worsening Summary regarding today's goals: Met: Pt remained free from injury during treatment today. Discharged in stable condition. TL, JF assisted. * Alyssa Dominguez RN - 09/08/2023 10:54 AM EST Chair 7. Patient arrived for treatment with no complaints. Safety and Risk for Injury Patient will remain free from injury. Ensure appropriate safety devices are available. Provide and maintain safe environment. documented in this encounter Plan of Treatment Upcoming Encounters Date Type Department Care Team (Late st Contact Info) Description 10/12/2023 4:00 PM EST Office Visit Rheumatology [facility] [address] [facility] [place] [address] Grady Porras MD [address] [place] [address] 02/23/2024 9:00 AM EDT Hem/Onc Treatment Hematology/Oncology Treatment, [place] [address] [place] [address] Gwendolyn, Chair 6 [facility] [address] Health Maintenance Due Date Last Done Comments [...] Not on filedocumented as of this encounter Visit Diagnoses Diagnosis Granulomatosis with polyangiitis without renal involvement (HCC)- Primary documented in this encounter Administered Medications Active Administered Medications - up to 3 most recent administrations Medication Order MAR Action Action Date Dose Rate Site diphenhydrAMINE (Benadryl) inj 50 mg 50 mg, IV Push, ONCE PRN Other, Hypersensitivity Reaction, Starting on Isabelle 09/08/23 at 0938, Until Tue09/09/23 at 0937, For 24 hours EPINEPHrine 1 MG/ML inj 0.3 mg 0.3 mg, Intramuscular, ONCE PRN Other, Hypersensitivity Reaction or Anaphylaxis, Starting on Isabelle 09/08/23 at 0938, Until Tue09/09/23 at 0937, For 24 hours hEParin 100 UNIT/ML Lock Flush inj 500 Units 500 Units (5 mL), IV Lock, PRN Other, IV Flush, Starting on Isabelle 09/08/23 at 0938, Until Tue09/09/23 at 0937, For 24 hours, Do not flush if lock, PICC, or central line not in place; IV infusing or unable to flush. Hydrocortisone Sod Suc (PF) (Solu-Cortef) inj 100 mg 100 mg, IV Push, ONCE PRN Other, Hypersensitivity Reaction, Starting on Isabelle 09/08/23 at 0938, Until Tue09/09/23 at 0937, For 24 hours NSS infusion 500 mL, Intravenous, at 50 mL/hr, CONTINUOUS, Starting on Isabelle 09/08/23 at 1045, Until Isabelle 09/08/23 at 2044 Start Infusion 09/08/2023 9:45 AM EST 500 mL 50 mL/hr sodium chloride 0.9 % flush central line 10 mL 10 mL, IV Push, PRN Other, IV Flush, Starting on Isabelle 09/08/23 at 0938, Until Tue09/09/23 at 0937, For 24 hours, Do not flush if lock, PICC, or central line not in place; IV infusing or unable to flush. Inactive Administered Medications - up to 3 most recent administrations Medication Order MAR Action Action Date Dose Rate Site Acetaminophen (Tylenol) tab 650 mg 650 mg, Oral, ONCE, On Isabelle 09/08/23 at 1045, For 1 dose, Maximum of 4 grams (4000 mg) per day. Given 09/08/2023 9:55 AM EST 650 mg diphenhydrAMINE (Benadryl) cap 50 mg 50 mg, Oral, ONCE, On Isabelle 09/08/23 at 1045, For 1 dose Given 09/08/2023 9:55 AM EST 50 mg methylPREDNISolone sodium succ (SOLU-Medrol) inj 125 mg 125 mg, IV Push, ONCE, On Isabelle 09/08/23 at 1045, For 1 dose Given 09/08/2023 10:17 AM EST 125 mg riTUXimab-pvvr (Ruxience) 500 mg in NSS 500 mL ivpb 500 mg, IV Piggyback, ONCE, 1 dose, On Isabelle 09/08/23 at 1115, Subsequent Infusions: Start at an infusion rate of 100 mg/hour. If no reaction, rate may be increased by 100 mg/hour increments every 30-minutes to a maximum of 400 mg/hour. Subsequent Infusion Rates: 100 mL/hr for 60-minutes then increase to 200 mL/hr for 30-minutes then increase to 300 mL/hr for 30-minutes then increase to 400 mL/hr Maximum Rate Change 09/08/2023 12:00 PM EST 400 mL/hr Rate Change 09/08/2023 11:30 AM EST 300 mL/hr Rate Change 09/08/2023 10:50 AM EST 200 mL/hr documented in this encounter Care Teams Shirrer Relationship Specialty Start Date End Date Ravi Orantes MD [address] [place] [address] [address] PCP - General Internal Medicine 11/01/18 documented as of this encounter
[2023-10-04] MEDS ORDERED: POTASSIUM CHLORIDE CRTAB 20 MEQ TABCR PO STA (00:09)
[2023-10-04] MEDS: SODIUM CHLORIDE 0.9% 1,000 ML IV SCH (00:59)
[2023-10-04] MEDS: POTASSIUM CHLORIDE / WTR 10 MEQ/100 ML PLCT IV SCH (01:22)
[2023-10-04] MEDS: ALBUT/IPRATROP 3MG/0.5MG NEB 3 ML VIAL NEB SCH ×5 (03:20→20:20)
[2023-10-04 07:32] LABS: BUN Creatinine Ratio 21.4 (10-20); Creatinine Clr Calc Pharmacy 198.6 ml/min; Est GFR (African American) 144.8 ml/min; Est GFR (Non-African American) 124.9 ml/min; Potassium 4.6 mmol/L (3.5-5.1)
--- NOTE | 2023-10-04 07:50 | Hospitalist Progress Note ---
Date of Service October 04, 2023 Assessment & Plan (1) Influenza A virus subtype H1 2009 pandemic strain present: Plan: 47 M with history of granulomatosis with polyangiitis (pulmonary manifestation) on long-term prednisone, immunosuppressed on rituxan q6 mo last mid, DM2, HTN, who presented to the emergency room with worsening dyspnea on exertion x 2 weeks. At home O2 sats in 70s. Required 10 L of oxygen via oxime mask, and admitted to the hospital for continued management of influenza A (H1N1) + multilobar pneumonia found on CT chest. Acute on chronic hypoxic respiratory failure (present on admission) due to influenza A -10L O2 on admission, improved to 4L. Uses nocturnal and PRN home O2. -TIMO on CPAP Influenza A ([id number])/Community-Acquired Pneumonia -Stable. Afebrile. WBC normal. Mild hypercarbia on VBG. Procalcitonin negative. MRSA nares negative. 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 -S/p oseltamivir, IV cefepime (2 g x 1 dose) in the ED. * Continue oseltamivir 75 mg twice daily (x 5 days total) * Initiated empiric CAP regimen: Augmentin 875-125 twice daily x 5 days, azithromycin 500/250 mg x 5 days total (500 mg day 1, 250 mg days 2-5) * Home steroids - resumed prednisone 5 mg daily, 3X/week Bactrim held * Increase steroids if wheezing / bronchospasm increases * Isolation droplet precautions * Scheduled DuoNeb every 4 hours x 24 hours, then home albuterol inhaler as needed * Flutter valve Hypokalemia -replaced in ED and on admission, resolved on today's labs Granulomatosis with polyangiitis (without renal involvement) Inserting Operator is Dr. Flores, Vamp Marker is Dr. Porras -Predominantly pulmonary manifestation. On chronic daily prednisone, rituxan q6 mo, maintenance inhaler, as needed Bactrim. * Daily prednisone, thrice weekly Bactrim held as above * Continue home Incruse Ellipta Type 2 Diabetes -Takes metformin 1000 mg twice daily. Last Hgb A1c-6.3% in Nov. 23 * Home metformin held * SSI insulin (CF-40, CR-20, BSG range 100-140), ACHS glucose checks per protocol * BG reviewed at goal 10/04 Hypertension * Continue home hydrochlorothiazide 25 mg Code: Full code Dispo: Med-Surg telemetry FEN/GI: Carb consistent DVT Prophylaxis: Lovenox 40 mg q24h PT/OT: No Consults: None Case Management: No (2) Community acquired pneumonia: (3) Granulomatosis with polyangiitis without renal involvement: (4) Diabetes mellitus: (5) Hypertension: Admission and Anticipated Discharge Date Admission Date: October 03, 2023 Subjective Antione is feeling better today now that he is on an adequate amount of oxygen. He has some baseline dyspnea and is a little worse than usual, mild wheezing has a lot of coughing. Slight chest pain right anterior chest only when he is coughing. No nausea vomiting or diarrhea. He does have a headache he has these chronically he associates them with his inflammatory sinusitis. He does not feel the sinusitis is worse than usual for him Physical Exam 2 Physical Exam: PHYSICAL EXAMINATION Last 24h vital signs reviewed, see documentation in flowsheet General: comfortable appearing, no distress, sitting up in the chair HEENT: Normocephalic, atraumatic, pupils round and equal, sclerae anicteric, no conjunctival injection, moist mucus membranes Lungs: mildly increased respiratory effort. scattered crackles and mild expiratory wheezes and squeaks throughout bilateral posterior lung lott. Heart: Regular rate and rhythm, no murmurs. No JVD Abdomen: nondistended. Bowel sounds present. Extremities: Warm, dry, well-perfused. No extremity edema. Neuro: Alert and oriented x 4, face symmetric, moves 4 extremities well Psych: Normal affect and behavior Results & Data Results & Data Vital Signs (Past 12 Hours) Vital Signs Temp Pulse Pulse Resp BP BP Pulse Ox 10/04/23 07:36 36.8 C 79 19 113/77 93 10/04/23 07:29 85 10/04/23 07:26 87 18 93 10/04/23 03:57 36.5 C 81 18 117/80 98 10/04/23 03:25 86 22 98 10/04/23 01:42 36.6 C 83 20 120/81 94 10/04/23 01:05 88 23 92 10/04/23 00:50 90 10/04/23 00:15 10/04/23 00:15 95 H 10/03/23 23:30 90 22 130/88 96 10/03/23 23:25 103 H 10/03/23 23:00 90 28 H 130/88 93 10/03/23 22:03 91 H 10/03/23 21:45 91 H 22 114/78 93 10/03/23 20:20 94 H 24 94 10/03/23 20:10 59 L 17 92 10/03/23 20:00 122/90 10/03/23 20:00 87 22 94 O2 Del Method O2 Flow Rate 10/04/23 07:36 Nasal Cannula 4 10/04/23 07:29 10/04/23 07:26 Oxymask 4 10/04/23 03:57 Oxymask 10 10/04/23 03:25 Oxymask 10 10/04/23 01:42 Oxymask 10 10/04/23 01:05 8 10/04/23 00:50 Oxymask 8 10/04/23 00:15 Oxymask 10 10/04/23 00:15 10/03/23 23:30 Aerosol Mask 10 10/03/23 23:25 10/03/23 23:00 Oxymask 10 10/03/23 22:03 10/03/23 21:45 Oxymask 10 10/03/23 20:20 Oxymask 10 10/03/23 20:10 10/03/23 20:00 10/03/23 20:00 Oxymask 10 Laboratory Results 10/04/23 06:50 10/04/23 06:50 PG Care Time/CCT Total # of Minutes Spent Total Time Spent with Patient: Total time spent is greater than 50% in coordination of care (as documented) at patient's floor/unit and/or counseling patient: Coding Level of Care Code 53393 SUB INP/OBS CARE 3/50MIN Diagnoses Influenza A virus subtype H1 2009 pandemic strain present J10.1 Community acquired pneumonia, unspecified laterality J18.9 Laterality: unspecified laterality Granulomatosis with polyangiitis without renal involvement M31.30 Type 2 diabetes mellitus without complication, without long-term current use of insulin E11.9 Diabetes mellitus complication status: without complication Diabetes mellitus snf insulin use: without intermodal owner operator truck driver use Diabetes mellitus type: type 2 Hypertension I10 (2) Community acquired pneumonia Laterality: unspecified laterality Qualified Code(s): J18.9 - Pneumonia, unspecified organism (4) Diabetes mellitus Diabetes mellitus complication status: without complication Diabetes mellitus intermodal owner operator truck driver insulin use: without intermodal owner operator truck driver use Diabetes mellitus type: type 2 Qualified Code(s): E11.9 - Type 2 diabetes mellitus without complications
[2023-10-04 07:58] LABS: Hematocrit (blood only) 46.5 % (42.0-52.0); Hemoglobin 14.3 g/dl (14.0-18.0); Mean Corpuscular Hemoglobin 28.8 pg (25.0-34.0); Mean Corpuscular Hgb Conc 30.8 g/dL (32.0-36.0); Mean Corpuscular Volume 93.6 fL (80.0-100.0); Mean Platelet Volume 11.2 fL (9.4-12.4); Platelet Count 277 K/uL (130-400); RDW Coefficient of Variation 14.1 % (11.5-14.5); RDW Standard Deviation 47.6 fL (36.4-46.3); Red Blood Count 4.97 M/uL (4.70-6.10); White Blood Count 5.63 K/ul (4.8-10.8)
[2023-10-04] MEDS: AMOXICILLIN/CLAVULANATE 875 MG TAB PO SCH ×2 (08:08→17:41)
[2023-10-04] MEDS: OSELTAMIVIR PHOSPHATE 75 MG CAP PO SCH ×2 (08:08→20:39)
[2023-10-04] MEDS: hydroCHLOROthiazide 25 MG TAB PO SCH (08:08)
[2023-10-04] MEDS: CHOLECALCIFEROL 5,000 UNITS 125 MCG TAB PO SCH (08:09)
[2023-10-04] MEDS: UMECLIDINIUM BROMIDE 62.5MCG/BLISTER 7 PUFFS/INHALER INH SCH (08:09)
[2023-10-04] MEDS: ENOXAPARIN INJ 40 MG/0.4 ML SYR SQ SCH (08:09)
--- NOTE | 2023-10-04 08:11 | Electrocardiogram Report ---
Test Reason : Blood Pressure : / mmHG Vent. Rate : 099 BPM Atrial Rate : 099 BPM P-R Int : 178 ms QRS Dur : 080 ms QT Int : 344 ms P-R-T Axes : 038 205 026 degrees QTc Int : 441 ms Normal sinus rhythm Right superior axis deviation Pulmonary disease pattern T wave abnormality, consider anterior ischemia Abnormal ECG No previous ECGs available Confirmed by Bishop Vincent [id number]) on 10/04/2023 8:10:45 AM Referred By: REFERRED SELF Confirmed By:Bishop Vincent
[2023-10-04] MEDS ORDERED: AZITHROMYCIN 250 MG TAB PO SCH (09:00)
[2023-10-04] MEDS: predniSONE 5 MG TAB PO SCH (09:27)
[2023-10-04] MEDS: INSULIN ASPART PER UNIT CHARGE SC SCH ×4 (09:27→20:36)
[2023-10-04] MEDS ORDERED: ACETAMINOPHEN 325 MG TAB PO PRN (12:40)
[2023-10-04] MEDS: IBUPROFEN 200 MG TAB PO PRN (17:40)
--- NOTE | 2023-10-05 03:01 | Billing Data ---
Date of Service October 05, 2023 Coding Level of Care Code 19738 INT INP/OBS CARE
[2023-10-05] MEDS: CEFEPIME 2,000 MG in SYRINGE 0 ML IV SCH ×3 (03:57→20:40)
[2023-10-05] MEDS: AZITHROMYCIN 500 MG in DEXTROSE 5% 250 ML IV SCH (03:57)
[2023-10-05 06:42] LABS: Hematocrit (blood only) 42.7 % (42.0-52.0); Hemoglobin 13.3 g/dl (14.0-18.0); Mean Corpuscular Hemoglobin 28.5 pg (25.0-34.0); Mean Corpuscular Hgb Conc 31.1 g/dL (32.0-36.0); Mean Corpuscular Volume 91.4 fL (80.0-100.0); Mean Platelet Volume 11.1 fL (9.4-12.4); Platelet Count 239 K/uL (130-400); RDW Coefficient of Variation 14.3 % (11.5-14.5); Red Blood Count 4.67 M/uL (4.70-6.10)
[2023-10-05 07:18] LABS: BUN Creatinine Ratio 34.5 (10-20); Creatinine Clr Calc Pharmacy 191.8 ml/min; Est GFR (African American) 142.7 ml/min; Est GFR (Non-African American) 123.1 ml/min; Potassium 3.8 mmol/L (3.5-5.1)
[2023-10-05] MEDS: IBUPROFEN 200 MG TAB PO PRN ×2 (07:58→17:52)
[2023-10-05] MEDS: OSELTAMIVIR PHOSPHATE 75 MG CAP PO SCH ×2 (07:59→20:42)
[2023-10-05] MEDS: predniSONE 5 MG TAB PO SCH (07:59)
[2023-10-05] MEDS: CHOLECALCIFEROL 5,000 UNITS 125 MCG TAB PO SCH (08:00)
[2023-10-05] MEDS: hydroCHLOROthiazide 25 MG TAB PO SCH (08:00)
[2023-10-05] MEDS: ENOXAPARIN INJ 40 MG/0.4 ML SYR SQ SCH (08:01)
[2023-10-05] MEDS: UMECLIDINIUM BROMIDE 62.5MCG/BLISTER 7 PUFFS/INHALER INH SCH (08:01)
[2023-10-05] MEDS ORDERED: AZITHROMYCIN 250 MG TAB PO SCH (09:00)
[2023-10-05] MEDS: INSULIN ASPART PER UNIT CHARGE SC SCH ×4 (09:05→21:01)
--- NOTE | 2023-10-05 17:12 | Hospitalist Progress Note ---
Date of Service October 05, 2023 Assessment & Plan (1) Influenza A virus subtype H1 2009 pandemic strain present: Plan: 47 M with history of granulomatosis with polyangiitis (pulmonary manifestation) on long-term prednisone, DM2, HTN, who presented to the emergency room with worsening dyspnea on exertion x 2 weeks. Now stable on 10 L of oxygen via oxime mask, and admitted to the hospital for continued management of influenza A (H1N1) + multilobar pneumonia found on CT chest. Influenza A ([id number])/Community-Acquired Pneumonia -Stable. Afebrile. WBC normal. Mild hypercarbia on VBG. Procalcitonin negative. MRSA nares negative. 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 -S/p oseltamivir, IV cefepime (2 g x 1 dose) in the ED. * Admit to MedSurg telemetry * Continue oseltamivir 75 mg twice daily (x 5 days total) * Initiated empiric CAP regimen: Augmentin 875-125 twice daily x 5 days, azithromycin 500/250 mg x 5 days total (500 mg day 1, 250 mg days 2-5) * Continue home prednisone, 3X/week Bactrim held. If increased wheezing will increase prednisone. * Isolation droplet precautions * Scheduled DuoNeb every 4 hours x 24 hours, then home albuterol inhaler as needed * Flutter valve, Incentive spirometer ordered Hypokalemia -S/p 10 mEq KCl in the ED. -Additional 50 mEq KCl repleted on admission. * resolved on today's labs Granulomatosis with polyangiitis (without renal involvement) -Predominantly pulmonary manifestation. On chronic daily prednisone, maintenance inhaler, as needed Bactrim. * Daily prednisone, thrice weekly Bactrim held as above * Continue home Incruse Ellipta Type 2 Diabetes -Takes metformin 1000 mg twice daily. Last Hgb A1c-6.3% in * Home metformin held * SSI insulin (CF-40, CR-20, BSG range 100-140), ACHS glucose checks per protocol * BG at goal 10/05 Hypertension * Continue home hydrochlorothiazide 25 mg Code: Full code Dispo: Med-Surg telemetry FEN/GI: Carb consistent DVT Prophylaxis: Lovenox 40 mg q24h PT/OT: No Consults: None Case Management: No (2) Community acquired pneumonia: (3) Granulomatosis with polyangiitis without renal involvement: (4) Diabetes mellitus: (5) Hypertension: Admission and Anticipated Discharge Date Admission Date: October 03, 2023 Subjective Feels about the same, dyspnea on exertion is about at baseline, mildly increased wheezing compared to baseline, has headache similar to his chronic headache, +cough. Physical Exam 2 Physical Exam: PHYSICAL EXAMINATION Last 24h vital signs reviewed, see documentation in flowsheet General: sitting up in chair HEENT: Normocephalic, atraumatic, pupils round and equal, sclerae anicteric, no conjunctival injection, moist mucus membranes Lungs: comfortable respiratory effort, mild increase in rate. scattered crackles and mild expiratory wheezes and squeaks throughout bilateral posterior lung lott - unchanged compared to 10/04. Heart: Regular rate and rhythm, no murmurs. No JVD Abdomen: nondistended. Bowel sounds present. Extremities: Warm, dry, well-perfused. No extremity edema. Neuro: Alert and oriented x 4, face symmetric, moves 4 extremities well Psych: Normal affect and behavior Results & Data Results & Data Vital Signs (Past 12 Hours) Vital Signs Temp Pulse Pulse Resp BP Pulse Ox O2 Del Method 10/05/23 16:48 37.2 C 95 H 18 121/82 92 Nasal Cannula 10/05/23 15:00 94 H 10/05/23 08:00 Nasal Cannula 10/05/23 07:44 36.9 C 91 H 18 111/77 95 Nasal Cannula 10/05/23 07:34 98 H O2 Flow Rate 10/05/23 16:48 3 10/05/23 15:00 10/05/23 08:00 4 10/05/23 07:44 4 10/05/23 07:34 Laboratory Results 10/05/23 06:10 10/05/23 06:10 PG Care Time/CCT Total # of Minutes Spent Total Time Spent with Patient: Total time spent is greater than 50% in coordination of care (as documented) at patient's floor/unit and/or counseling patient: Coding Level of Care Code 68766 SUB INP/OBS CARE 2/35MIN Diagnoses Influenza A virus subtype H1 2009 pandemic strain present J10.1 Community acquired pneumonia, unspecified laterality J18.9 Laterality: unspecified laterality Granulomatosis with polyangiitis without renal involvement M31.30 Type 2 diabetes mellitus without complication, without long-term current use of insulin E11.9 Diabetes mellitus complication status: without complication Diabetes mellitus jail insulin use: without jail use Diabetes mellitus type: type 2 Hypertension I10 (2) Community acquired pneumonia Laterality: unspecified laterality Qualified Code(s): J18.9 - Pneumonia, unspecified organism (4) Diabetes mellitus Diabetes mellitus complication status: without complication Diabetes mellitus vermin exterminator insulin use: without vermin exterminator use Diabetes mellitus type: type 2 Qualified Code(s): E11.9 - Type 2 diabetes mellitus without complications
[2023-10-06] MEDS: CEFEPIME 2,000 MG in SYRINGE 0 ML IV SCH ×3 (04:09→22:19)
[2023-10-06] MEDS: IBUPROFEN 200 MG TAB PO PRN ×2 (04:11→09:24)
[2023-10-06] MEDS: AZITHROMYCIN 500 MG in DEXTROSE 5% 250 ML IV SCH (05:59)
[2023-10-06 06:55] LABS: Hematocrit (blood only) 41.7 % (42.0-52.0); Hemoglobin 12.9 g/dl (14.0-18.0); Mean Corpuscular Hemoglobin 28.3 pg (25.0-34.0); Mean Corpuscular Hgb Conc 30.9 g/dL (32.0-36.0); Mean Corpuscular Volume 91.4 fL (80.0-100.0); Mean Platelet Volume 11.3 fL (9.4-12.4); Platelet Count 237 K/uL (130-400); RDW Coefficient of Variation 14.2 % (11.5-14.5); RDW Standard Deviation 47.8 fL (36.4-46.3); Red Blood Count 4.56 M/uL (4.70-6.10); White Blood Count 6.47 K/ul (4.8-10.8)
[2023-10-06 07:18] LABS: Anion Gap 4 (3-11); BUN Creatinine Ratio 32.6 (10-20); Blood Urea Nitrogen 15 mg/dl (6-23); Calcium 8.1 mg/dl (8.6-10.3); Carbon Dioxide 41 mmol/L (21-32); Chloride 93 mmol/L (98-107); Creatinine Clr Calc Pharmacy 241.8 ml/min; Est GFR (African American) > 150.0 ml/min; Est GFR (Non-African American) 135.4 ml/min; Glucose 119 mg/dl (70-99(Fasting)); Potassium 3.4 mmol/L (3.5-5.1); Sodium 138 mmol/L (136-145)
[2023-10-06] MEDS: UMECLIDINIUM BROMIDE 62.5MCG/BLISTER 7 PUFFS/INHALER INH SCH (09:16)
[2023-10-06] MEDS: OSELTAMIVIR PHOSPHATE 75 MG CAP PO SCH ×2 (09:16→21:13)
[2023-10-06] MEDS: ENOXAPARIN INJ 40 MG/0.4 ML SYR SQ SCH (09:16)
[2023-10-06] MEDS: hydroCHLOROthiazide 25 MG TAB PO SCH (09:17)
[2023-10-06] MEDS: predniSONE 5 MG TAB PO SCH (09:17)
[2023-10-06] MEDS: CHOLECALCIFEROL 5,000 UNITS 125 MCG TAB PO SCH (09:17)
[2023-10-06] MEDS: INSULIN ASPART PER UNIT CHARGE SC SCH ×4 (09:21→21:23)
--- NOTE | 2023-10-06 13:05 | Hospitalist Progress Note ---
Date of Service October 06, 2023 Assessment & Plan (1) Influenza A virus subtype H1 2009 pandemic strain present: Plan: 47 M with history of granulomatosis with polyangiitis (pulmonary manifestation) on long-term prednisone, DM2, HTN, who presented to the emergency room with worsening dyspnea on exertion x 2 weeks. Initially required 10 L of oxygen via oxime mask, and admitted to the hospital for continued management of influenza A (H1N1) + multilobar pneumonia found on CT chest. Acute on chronic hypoxic respiratory failure - due to influenza A Home regimen is 2L O2 at night with CPAP, states his senior producer Dr. Flores prefers he wear daytime O2 as well but he does not, baseline sats in low 90s at rest on room air -bicarb has risen to 41 and feels a little sleepy today, though awake/alert - recheck vbg for progression of hypercarbia -O2 sats have been too high - turned down O2 and discussed with cruise staff member. Sat goal 88-92%. 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 -S/p oseltamivir, IV cefepime (2 g x 1 dose) in the ED * Continue oseltamivir 75 mg twice daily (x 5 days total) * Initially treated with augmentin and azithromycin, broadened to cefepime and azithro /10 * Continue home prednisone, 3X/week Bactrim held. * Isolation droplet precautions * PRN duoneb and albuterol * Flutter valve, Incentive spirometer ordered Granulomatosis with polyangiitis (without renal involvement) -Predominantly pulmonary manifestation. On chronic daily prednisone, maintenance inhaler, as needed Bactrim. * Daily prednisone continued, thrice weekly Bactrim held as above * Continue home Incruse Ellipta Type 2 Diabetes -Takes metformin 1000 mg twice daily. Last Hgb A1c-6.3% in * Home metformin held * SSI insulin (CF-40, CR-20, BSG range 100-140), ACHS glucose checks per protocol * BG reviewed 10/06, at goal Hypertension * Continue home hydrochlorothiazide 25 mg Hypokalemia replaced and resolved Code: Full code Dispo: Med-Surg telemetry FEN/GI: Carb consistent DVT Prophylaxis: Lovenox 40 mg q24h PT/OT: No Consults: None Case Management: No (2) Community acquired pneumonia: (3) Granulomatosis with polyangiitis without renal involvement: (4) Diabetes mellitus: (5) Hypertension: Plan I updated his by phone evening of 10/05 Admission and Anticipated Discharge Date Admission Date: October 03, 2023 Subjective doing about the same, can really feel dyspnea when his oxygen is off and sats go down. wore CPAP overnight per routine. does feel a little sleepy today. Physical Exam 2 Physical Exam: PHYSICAL EXAMINATION Last 24h vital signs reviewed, see documentation in flowsheet General: sitting on EOB HEENT: Normocephalic, atraumatic, pupils round and equal, sclerae anicteric, no conjunctival injection, moist mucus membranes Lungs: comfortable respiratory effort, scattered crackles and squeaks L>R base, exp wheezing throughout bilateral lung lott sounds more musical but better air movement today Heart: Regular rate and rhythm, no murmurs. No JVD Abdomen: nondistended. Bowel sounds present. Extremities: Warm, dry, well-perfused. trace lower extremity edema. Neuro: Alert and oriented x 4, face symmetric, moves 4 extremities well Psych: Normal affect and behavior Results & Data Results & Data Vital Signs (Past 12 Hours) Vital Signs Temp Pulse Pulse Resp BP BP Pulse Ox 10/06/23 11:43 10/06/23 11:40 37.3 C 83 20 116/77 93 10/06/23 07:59 37.0 C 74 18 116/76 96 10/06/23 07:40 82 10/06/23 04:00 38 C H 87 18 113/75 96 O2 Del Method O2 Flow Rate 10/06/23 11:43 Nasal Cannula 2.5 10/06/23 11:40 High Flow Nasal Cannula 2.5 10/06/23 07:59 CPAP 10/06/23 07:40 10/06/23 04:00 CPAP Laboratory Results 10/06/23 06:17 10/06/23 06:17 PG Care Time/CCT Total # of Minutes Spent Total Time Spent with Patient: Total time spent is greater than 50% in coordination of care (as documented) at patient's floor/unit and/or counseling patient: Coding Level of Care Code 06647 SUB INP/OBS CARE 2/35MIN Diagnoses Influenza A virus subtype H1 2009 pandemic strain present J10.1 Community acquired pneumonia, unspecified laterality J18.9 Laterality: unspecified laterality Granulomatosis with polyangiitis without renal involvement M31.30 Type 2 diabetes mellitus without complication, without long-term current use of insulin E11.9 Diabetes mellitus type: type 2 Diabetes mellitus exterminator helper termite insulin use: without exterminator helper termite use Diabetes mellitus complication status: without complication Hypertension I10 (2) Community acquired pneumonia Laterality: unspecified laterality Qualified Code(s): J18.9 - Pneumonia, unspecified organism (4) Diabetes mellitus Diabetes mellitus type: type 2 Diabetes mellitus exterminator helper termite insulin use: w ithout fpc use Diabetes mellitus complication status: without complication Qualified Code(s): E11.9 - Type 2 diabetes mellitus without complications
[2023-10-06 13:17] LABS: Base Excess VBG 21.1 mEq/L; HCO3 VBG 51 mmol/L; Oxygen Saturation VBG 79.6 %; PCO2 VBG 80 mmHg (38-50); PO2 VBG 47 mmHg; pH VBG 7.41 (7.36-7.41)
[2023-10-07] MEDS: CEFEPIME 2,000 MG in SYRINGE 0 ML IV SCH (05:27)
[2023-10-07] MEDS: AZITHROMYCIN 500 MG in DEXTROSE 5% 250 ML IV SCH (05:28)
[2023-10-07 07:17] LABS: Calcium 8.3 mg/dl (8.6-10.3); Carbon Dioxide > 45 mmol/L (21-32); Chloride 92 mmol/L (98-107); Potassium 3.5 mmol/L (3.5-5.1); Sodium 140 mmol/L (136-145)
[2023-10-07] MEDS: ALBUT/IPRATROP 3MG/0.5MG NEB 3 ML VIAL NEB SCH ×4 (07:31→19:13)
[2023-10-07 07:36] LABS: BUN Creatinine Ratio 23.1 (10-20); Blood Urea Nitrogen 12 mg/dl (6-23); Creatinine Clr Calc Pharmacy 213.9 ml/min; Est GFR (African American) 149.3 ml/min; Est GFR (Non-African American) 128.8 ml/min; Glucose 117 mg/dl (70-99(Fasting))
--- NOTE | 2023-10-07 08:03 | Hospitalist Progress Note ---
Date of Service October 07, 2023 Assessment & Plan (1) Influenza A virus subtype H1 2009 pandemic strain present: Plan: 47 M with history of granulomatosis with polyangiitis (pulmonary manifestation) on long-term prednisone, DM2, HTN, who presented to the emergency room with worsening dyspnea on exertion x 2 weeks. Initially required 10 L of oxygen via mask, and admitted to the hospital for continued management of influenza A (H1N1) + multilobar pneumonia found on CT chest. Acute on chronic hypoxic and hypercarbic respiratory failure - due to influenza A and underlying pulmonary disease Home regimen is 2L O2 at night with CPAP, states his call center trainer Dr. Flores prefers he wear daytime O2 as well but he does not, baseline sats in low 90s at rest on room air -bicarb has continued to rise and CO2 increased from 60-->80 on vbg. Repeat vbg this AM, ordered CXR - reviewed film and report, unchanged with multifocal opacities -increased prednisone to 20 mg, resume scheduled nebs. Dr. Mccollum recommended reducing back to baseline 5 mg daily. -discussed with pulmonary - requested consult -O2 sats were being turned up too high through yesterday AM, overnight desatting on CPAP had to be turned up to 5L (usual 2) Sat goal 88-92%. 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 -repeat CXR * Continue oseltamivir 75 mg twice daily (x 5 days total) * Initially treated with augmentin and azithromycin, broadened to cefepime and azithro 10/05. Stopped 10/07 per recommendation of pulmonary. * Continue home prednisone, 3X/week Bactrim held. * Isolation droplet precautions * PRN and sched duoneb and PRN albuterol * Flutter valve, Incentive spirometer ordered Granulomatosis with polyangiitis (without renal involvement) -Predominantly pulmonary manifestation. On chronic daily prednisone, maintenance inhaler, as needed Bactrim. * Daily prednisone increased, thrice weekly Bactrim held as above * Continue home Incruse Ellipta Type 2 Diabetes -Takes metformin 1000 mg twice daily. Last Hgb A1c-6.3% in * Home metformin held * SSI insulin (CF-40, CR-20, BSG range 100-140), ACHS glucose checks per protocol * BG reviewed 10/07, at goal Hypertension, LE edema * Continue home hydrochlorothiazide 25 mg Hypokalemia replaced and resolved Code: Full code Dispo: transfer to PCU FEN/GI: Carb consistent DVT Prophylaxis: Lovenox 40 mg q24h PT/OT: No Consults: Pulmonary (2) Community acquired pneumonia: (3) Granulomatosis with polyangiitis without renal involvement: (4) Diabetes mellitus: (5) Hypertension: Plan I updated his by phone evening of 10/05 Admission and Anticipated Discharge Date Admission Date: October 03, 2023 Subjective Antione feels a little better today, stronger, slept well, shortness of breath improved a little, feels like he's urinating more and edema improved Physical Exam 2 Physical Exam: PHYSICAL EXAMINATION Last 24h vital signs reviewed, see documentation in flowsheet General: sitting on EOB and standing in room HEENT: Normocephalic, atraumatic, pupils round and equal, sclerae anicteric, no conjunctival injection, moist mucus membranes Lungs: comfortable respiratory effort, scattered crackles and squeaks L>R base, diminished in bases Heart: Regular rate and rhythm, no murmurs. No JVD Abdomen: nondistended. Bowel sounds present. Extremities: Warm, dry, well-perfused. trace to 1+ lower extremity edema. Neuro: Alert and oriented x 4, face symmetric, moves 4 extremities well, mild asterixis Psych: Normal affect and behavior Results & Data Results & Data Vital Signs (Past 12 Hours) Vital Signs Temp Pulse Pulse Resp BP BP Pulse Ox 10/07/23 07:40 90 10/07/23 07:31 77 20 93 10/07/23 04:24 36.9 C 78 20 120/81 95 10/07/23 01:31 10/07/23 00:13 36.8 C 88 20 130/85 92 10/06/23 23:46 72 10/06/23 20:46 36.9 C 99 H 20 128/85 85 L O2 Del Method O2 Flow Rate 10/07/23 07:40 10/07/23 07:31 Nasal Cannula 2.5 10/07/23 04:24 Room Air, CPAP 10/07/23 01:31 Nasal Cannula, CPAP 2 10/07/23 00:13 Room Air 10/06/23 23:46 10/06/23 20:46 High Flow Nasal Cannula 2 Laboratory Results 10/06/23 06:17 10/07/23 06:13 Diagnostic Findings Chest X-Ray 10/07/23 07:48 XR chest 1V portable CLINICAL HISTORY: Hypoxia. History of granulomatous with polyangiitis. COMPARISON STUDY: Chest radiograph and chest CTs October 15, 2021 and October 03, 2023. FINDINGS: Low lung volumes are unchanged. No pneumothorax or pleural effusion is present. Cardiomediastinal silhouette is stable. Multifocal nodular opacities are similar to chest radiograph and chest CT of October 03, 2023. These are mildly increased when compared to earlier chest radiograph June 26, [address] of October 15, 2021. IMPRESSION: Multifocal nodular opacities, similar to chest radiograph of October 03, 2023 but increased when compared to study of June 26, 2019. The findings are largely chronic and related to known lung disease. However, the findings raise the possibility of a superimposed infectious process. Continued radiographic follow-up is recommended. ACT 112: Negative or not required by law. Electronically signed by: Leif Velasco M.D. 10/07/2023 8:17 AM PG Care Time/CCT Total # of Minutes Spent Total Time Spent with Patient: Total time spent is greater than 50% in coordination of care (as documented) at patient's floor/unit and/or counseling patient: Coding Level of Care Code 03933 SUB INP/OBS CARE 2/35MIN Diagnoses Influenza A virus subtype H1 2009 pandemic strain present J10.1 Community acquired pneumonia, unspecified laterality J18.9 Laterality: unspecified laterality Granulomatosis with polyangiitis without renal involvement M31.30 Type 2 diabetes mellitus without complication, without long-term current use of insulin E11.9 Diabetes mellitus complication status: without complication Diabetes mellitus mcfp insulin use: without mcfp use Diabetes mellitus type: type 2 Hypertension I10 (2) Community acquired pneumonia Laterality: unspecified laterality Qualified Code(s): J18.9 - Pneumonia, unspecified organism (4) Diabetes mellitus Diabetes mellitus complication status: without complication Diabetes mellitus caustic mixer insulin use: without caustic mixer use Diabetes mellitus type: type 2 Qualified Code(s): E11.9 - Type 2 diabetes mellitus without complications
--- NOTE | 2023-10-07 08:18 | XRay Report ---
XR chest 1V portable CLINICAL HISTORY: Hypoxia. History of granulomatous with polyangiitis. COMPARISON STUDY: Chest radiograph and chest CTs October 15, 2021 and October 03, 2023. FINDINGS: Low lung volumes are unchanged. No pneumothorax or pleural effusion is present. Cardiomedia stinal silhouette is stable. Multifocal nodular opacities are similar to chest radiograph and chest C T of October 03, 2023. These are mildly increased when compared to earlier chest radiograph June 26, [address] of October 15, 2021. IMPRESSION: Multifocal nodular opacities, similar to chest radiograph of October 03, 2023 but increase d when compared to study of June 26, 2019. The findings are largely chronic and related to known lynda ng disease. However, the findings raise the possibility of a superimposed infectious process. Continu ed radiographic follow-up is recommended. ACT 112: Negative or not required by law. Electronically signed by: Leif Velasco M.D. 10/07/2023 8:17 AM
[2023-10-07 08:37] LABS: Base Excess VBG 27.3 mEq/L; HCO3 VBG 57 mmol/L; Oxygen Saturation VBG 87.7 %; PCO2 VBG 78 mmHg (38-50); PO2 VBG 57 mmHg; pH VBG 7.47 (7.36-7.41)
[2023-10-07] MEDS: UMECLIDINIUM BROMIDE 62.5MCG/BLISTER 7 PUFFS/INHALER INH SCH (08:39)
[2023-10-07] MEDS: ENOXAPARIN INJ 40 MG/0.4 ML SYR SQ SCH (08:39)
[2023-10-07] MEDS: hydroCHLOROthiazide 25 MG TAB PO SCH (08:40)
[2023-10-07] MEDS: OSELTAMIVIR PHOSPHATE 75 MG CAP PO SCH ×2 (08:40→21:33)
[2023-10-07] MEDS: CHOLECALCIFEROL 5,000 UNITS 125 MCG TAB PO SCH (08:40)
[2023-10-07] MEDS: INSULIN ASPART PER UNIT CHARGE SC SCH ×4 (08:43→21:26)
[2023-10-07] MEDS: IBUPROFEN 200 MG TAB PO PRN ×2 (08:44→21:48)
[2023-10-07] MEDS ORDERED: predniSONE 20 MG TAB PO SCH (09:00)
--- NOTE | 2023-10-07 11:23 | Pulmonary Consultation ---
Date of Consultation October 07, 2023 Assessment & Plan (1) Chronic hypercapnic respiratory failure: (2) Bronchiectasis: (3) Restrictive lung disease: Plan Impression: 47-year-old male with pulmonary fibrosis and restrictive PFTs secondary to granulomatosis with polyangiitis admitted with influenza. He has chronic hypercarbic respiratory failure secondary to his restrictive lung disease which is well compensated. Recommendations: 1. Hypercarbic respiratory failure: Reviewed his blood gases which demonstrate a normal pH. Would not try and normalize his CO2. As long as pH remains normal, and no escalation of therapy or additional interventions are required. Recommend he continues to use CPAP nightly at home settings (6 cmH2O) with oxygen bleed at 3 L/min. Will perform overnight oximetry on those settings tonight to assess whether or not we need to potentially increase his oxygen. This may be necessary in the acute setting of influenza. He already has follow- up scheduled in the outpatient pulmonary arena with follow-up PFTs. Would delay his PFTs until he has recovered from his current illness. 2. Restrictive lung disease: Secondary to fibrotic changes associated with his autoimmune disorder. These do not appear significantly progressed on the most recent imaging but follow-up PFTs are recommended in the outpatient setting. 3. Abnormal CT scan: Reviewed the CT scan and compared to prior imaging. The multifocal airspace opacities appear stable compared to prior imaging and I doubt the patient has superimposed secondary bacterial infection. His white blood cell count is normal. Procalcitonin was undetectable. Antibiotics will be discontinued. 4. Influenza: The patient is completing a course of oseltamavir per primary. 5. Polyangiitis with granulomatosis. Continue home dose of prednisone. No indication to burst at this point in time. Patient may be approaching his baseline pulmonary status and potentially be eligible from dismissal from the hospital. Will follow-up in a.m. to review his overnight oximetry study. Thanks for the opportunity participate in the care of this patient. Feel free to contact us with questions History of Present Illness Attending Physician: Ashly Bailey MD History of Present Illness Asked by hospitalist service to evaluate this patient with chronic hypercapnic and hypoxemic respiratory failure, restrictive lung disease due to fibrosis secondary to polyangiitis with granulomatous inflammation admitted with influenza. The patient is a 47-year-old male who is followed by Dr. 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 His disease is clinically quiescent and he has been off immunosuppression. He has a history of hypercarbic respiratory failure and sleep disordered breathing and uses CPAP and supplemental oxygen at night. Has been referred for lung transplant was seen at [facility] but advised he needed to sustained significant weight loss before being reevaluated. This was over a year ago. The patient presented to the hospital 10/03/2023 with complaints of progressive shortness of breath on exertion. He had some viral URI symptoms several months earlier and had traveled. He was noted to be tachycardic and hypoxemia requiring initially nonrebreather. CT scan was performed demonstrating multifocal airspace consolidation essentially unchanged from prior CT scans. The patient was found to be positive for influenza. He was admitted to the hospital and treated with oseltamavir as well as Augmentin and azithromycin and his baseline steroid dose. The patient continued to experience shortness of breath with exertion. He complained of some mild sleepiness and a repeat gas was obtained which demonstrated chronic hypercarbic respiratory failure with appropriate compensation. There was concern that the patient may need more aggressive BiPAP so he was transferred to PCU and pulmonary was consulted. I assessed the patient on the floor. Is currently on the phone with his . He is awake alert conversant and in no obvious distress. He states he feels his breathing is improving. He is not experiencing any significant cough or sputum production. He denies any chest pain or palpitations. No significant lower extremity edema. He feels he is improving overall. Allergies Allergy/AdvReac Type Severity Reaction Status Date / Time No Known Drug Allergies Allergy . Verified 10/03/23 21:06 Home Medications Medication Instructions Recorded Confirmed Type cholecalciferol (vitamin D3) 125 5,000 units PO DAILY 04/25/19 10/03/23 History mcg (5,000 unit) tablet CPAP Machine #1 ea 10/10/19 08/23/23 Rx Oxygen Home #1 ea 11/22/19 08/23/23 Rx prednisone 5 mg tablet 5 mg PO DAILY #30 tabs 06/13/20 10/03/23 Rx Portable Oxygen #1 ea 07/25/20 08/23/23 Rx Flutter Valve #1 ea 08/05/20 08/23/23 Rx rituximab 10 mg/mL See Rx Instructions IV UD 01/28/21 10/03/23 History concentrate,intravenous blood sugar diagnostic (OneTouch #200 ea 03/10/22 08/23/23 Rx Verio test strips) lancets 30 gauge (OneTouch Delica #200 ea 03/10/22 08/23/23 Rx Plus Lancet) lancets 30 gauge (OneTouch Delica #200 ea 03/10/22 08/23/23 Rx Plus Lancet) hydrochlorothiazide 25 mg tablet 25 mg PO DAILY #90 tabs 12/20/22 10/03/23 Rx tiotropium bromide 2.5 2 puff inhalation DAILY #3 Inhalers 01/12/23 10/03/23 Rx mcg/actuation mist for inhalation (Spiriva Respimat) blood sugar diagnostic (OneTouch #200 ea 03/30/23 08/23/23 Rx Verio test strips) metformin 500 mg tablet 1,000 mg (2 x 500 mg) PO BIDWMEAL 07/13/23 10/03/23 Rx #360 tabs albuterol sulfate 90 mcg/actuation 2 puff inhalation Q6H PRN 10/03/23 10/03/23 History aerosol inhaler Shortness Of Breath Or Wheezing sulfamethoxazole 800 1 tab PO 3XWK 10/03/23 10/03/23 History mg-trimethoprim 160 mg tablet Patient History Medical History Hyperglycemia Weight loss Acute respiratory failure with hypoxia History of resection and anastomosis of trachea Vitamin D deficiency Steroid-induced osteoporosis Restrictive lung disease Mixed conductive and sensorineural hearing loss of both ears Lung nodules Lung infiltrate on CT Long-term use of immunosuppressant medication Hypertension Granulomatosis with polyangiitis without renal involvement Surgical History History of tracheostomy History of left mastoidectomy Family History Grandfather (Maternal) Myocardial infarction Other No family history of adverse response to anesthesia No family history of bleeding disorder Denies family history of Colon cancer Ovarian cancer Prostate cancer Breast cancer Social History Smoking Status: Never smoker Hx Alcohol Use: Yes Hx Substance Use: No Preferred Language: E[place]an Communication Ability: Effective Visual Impairment: No Limitations Hearing Ability: Hard of Hearing Test Rack Operator Required: No Beliefs That Will Affect Care: None marital status: Current Living Situation: Spouse current occupational status: employed 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 Other Information That Helps Us Care for You: No Feels Safe at Home: Yes Safety Concerns: Feels Safe At This Time Childhood Exposure to Second-Hand Smoke: Yes Dental Care, Regularly: Yes Physical Activity Frequency: Does not Exercise Seatbelt Use: always Sunscreen Use: Yes Assistive Devices: CPAP and Oxygen - at Night Review of Systems Review of Systems: All systems reviewed & are unremarkable except as noted in Subjective refer to H&P Physical Exam Constitutional: WD/WN, vitals as above Respiratory: no respiratory distress, no labored breathing, no cough and not tachypneic Auscultation: + diminished lung sounds and + crackles; no wheezes Cardiovascular: RRR, no murmur, no edema Psychiatric: A+Ox3, euthymic affect Results & Data Results & Data Vital Signs (Past 12 Hours) Vital Signs Temp Pulse Pulse Resp BP Pulse Ox O2 Del Method 10/07/23 10:19 37 C 83 16 115/83 93 Nasal Cannula 10/07/23 08:12 Nasal Cannula 10/07/23 07:40 90 10/07/23 07:31 77 20 93 Nasal Cannula 10/07/23 04:24 36.9 C 78 20 120/81 95 Room Air, CPAP 10/07/23 01:31 Nasal Cannula, CPAP 10/07/23 00:13 36.8 C 88 20 130/85 92 Room Air 10/06/23 23:46 72 O2 Flow Rate 10/07/23 10:19 2 10/07/23 08:12 2 10/07/23 07:40 10/07/23 07:31 2.5 10/07/23 04:24 10/07/23 01:31 2 10/07/23 00:13 10/06/23 23:46 Laboratory Results 10/03/23 10/06/23 10/07/23 18:31 13:01 08:16 VBG pH 7.39 7.41 7.47 H VBG pCO2 60 H 80 H 78 H VBG pO2 78 47 57 VBG HCO3 36 51 57 VBG O2 Saturation 96.0 79.6 87.7 VBG Base Excess 9.1 21.1 27.3 Critical Care Results & Data Vital Signs (Past 12 Hours) Vital Signs Temp Pulse Pulse Resp BP Pulse Ox O2 Del Method 10/07/23 10:19 37 C 83 16 115/83 93 Nasal Cannula 10/07/23 08:12 Nasal Cannula 10/07/23 07:40 90 10/07/23 07:31 77 20 93 Nasal Cannula 10/07/23 04:24 36.9 C 78 20 120/81 95 Room Air, CPAP 10/07/23 01:31 Nasal Cannula, CPAP 10/07/23 00:13 36.8 C 88 20 130/85 92 Room Air 10/06/23 23:46 72 O2 Flow Rate 10/07/23 10:19 2 10/07/23 08:12 2 10/07/23 07:40 10/07/23 07:31 2.5 10/07/23 04:24 10/07/23 01:31 2 10/07/23 00:13 10/06/23 23:46 Lab & Micro Results (Past 24 Hours) No Data to Display Na 140 mmol/L (136-145) 10/07/23 K 3.5 mmol/L (3.5-5.1) 10/07/23 Cl 92 mmol/L (98-107) L 10/07/23 CO2 > 45 mmol/L (21-32) H* 10/07/23 Anion Gap TNP 10/07/23 BUN 12 mg/dl (6-23) 10/07/23 Creatinine 0.52 mg/dl (0.6-1.4) L 10/07/23 Estimated GFR ( Amer) 149.3 ml/min 10/07/23 Estimated GFR (Non-Af Amer) 128.8 ml/min 10/07/23 BUN/Creatinine Ratio 23.1 (10-20) H 10/07/23 Glu 117 mg/dl (70-99(Fasting)) H 10/07/23 Ca 8.3 mg/dl (8.6-10.3) L 10/07/23 Calcium Level 8.3 mg/dl (8.6-10.3) L 10/07/23 06:13 Venous Blood pH 7.47 (7.36-7.41) H 10/07/23 08:16 Venous Blood Partial Pressure CO2 78 mmHg (38-50) H 10/07/23 08 :16 Venous Blood Partial Pressure O2 57 mmHg 10/07/23 08:16 Venous Blood HCO3 57 mmol/L 10/07/23 08:16 Venous Blood Base Excess 27.3 mEq/L 10/07/23 08:16 Venous Blood Oxygen Saturation 87.7 % 10/07/23 08:16 Diagnostic Findings (Past 24 Hours) Chest X-Ray 10/07/23 07:48 XR chest 1V portable CLINICAL HISTORY: Hypoxia. History of granulomatous with polyangiitis. COMPARISON STUDY: Chest radiograph and chest CTs October 15, 2021 and October 03, 2023. FINDINGS: Low lung volumes are unchanged. No pneumothorax or pleural effusion is present. Cardiomediastinal silhouette is stable. Multifocal nodular opacities are similar to chest radiograph and chest CT of October 03, 2023. These are mildly increased when compared to earlier chest radiograph June 26, [address] of October 15, 2021. IMPRESSION: Multifocal nodular opacities, similar to chest radiograph of October 03, 2023 but increased when compared to study of June 26, 2019. The findings are largely chronic and related to known lung disease. However, the findings raise the possibility of a superimposed infectious process. Continued radiographic follow-up is recommended. ACT 112: Negative or not required by law. Electronically signed by: Leif Velasco M.D. 10/07/2023 8:17 AM I & O Totals 24 Hours 10/06/23 10/07/23 10/08/23 06:59 06:59 06:59 Intake Total 800 / 800 1765 / 1765 255 / 255 Output Total 1300 / 1300 950 / 950 Balance -500 / -500 815 / 815 255 / 255 Cumulative 10/03/23 16:57 thru 10/07/23 07:31 Intake Total 6553.333 Output Total 3325 Balance 3228.333 RT Ventilator Mngmt (Last Documented) Ventilator Ordered Settings Respiratory Rate 16 10/07/23 10:19 Ventilator - PT Measurements Respiratory Rate 16 PG Care Time/CCT Total # of Minutes Spent Total Time Spent with Patient: Total time spent is greater than 50% in coordination of care (as documented) at patient's floor/unit and/or counseling patient: Coding Level of Care Code 46252 IN/OBS CONSULT LVL 4,60M Diagnoses Chronic hypercapnic respiratory failure J96.12 Bronchiectasis J47.9 Restrictive lung disease J98.4
[2023-10-08 07:26] LABS: Blood Urea Nitrogen 14 mg/dl (6-23); Calcium 8.7 mg/dl (8.6-10.3); Carbon Dioxide > 45 mmol/L (21-32); Chloride 93 mmol/L (98-107); Creatinine Clr Calc Pharmacy 198.6 ml/min; Est GFR (African American) 144.8 ml/min; Est GFR (Non-African American) 124.9 ml/min; Glucose 108 mg/dl (70-99(Fasting)); Potassium 3.5 mmol/L (3.5-5.1); Sodium 142 mmol/L (136-145)
[2023-10-08] MEDS: ALBUT/IPRATROP 3MG/0.5MG NEB 3 ML VIAL NEB SCH ×2 (07:37→11:32)
[2023-10-08] MEDS: INSULIN ASPART PER UNIT CHARGE SC SCH ×2 (08:53→12:09)
[2023-10-08] MEDS: hydroCHLOROthiazide 25 MG TAB PO SCH (08:54)
[2023-10-08] MEDS: OSELTAMIVIR PHOSPHATE 75 MG CAP PO SCH (08:54)
[2023-10-08] MEDS: ENOXAPARIN INJ 40 MG/0.4 ML SYR SQ SCH (08:55)
[2023-10-08] MEDS: UMECLIDINIUM BROMIDE 62.5MCG/BLISTER 7 PUFFS/INHALER INH SCH (08:55)
[2023-10-08] MEDS: CHOLECALCIFEROL 5,000 UNITS 125 MCG TAB PO SCH (08:55)
[2023-10-08] MEDS ORDERED: predniSONE 5 MG TAB PO SCH (09:00)
--- NOTE | 2023-10-08 09:45 | Pulmonology Progress Note ---
Date of Service October 08, 2023 Assessment & Plan (1) Chronic hypercapnic respiratory failure: (2) Bronchiectasis: (3) Restrictive lung disease: Plan Impression: 47-year-old male with pulmonary fibrosis and restrictive PFTs secondary to granulomatosis with polyangiitis admitted with influenza. He has chronic hypercarbic respiratory failure secondary to his restrictive lung disease which is well compensated. The patient is doing well clinically and feels back to baseline Recommendations: 1. Hypercarbic respiratory failure: As per previous notes. No acute indication required 2. Restrictive lung disease: Secondary to fibrotic changes associated with his autoimmune disorder. These do not appear significantly progressed on the most recent imaging but follow-up PFTs are recommended in the outpatient setting. 3. Abnormal CT scan: Reviewed the CT scan and compared to prior imaging. The multifocal airspace opacities appear stable compared to prior imaging and I doubt the patient has superimposed secondary bacterial infection. His white blood cell count is normal. Procalcitonin was undetectable. Antibiotics being held 4. Influenza: The patient is completing a course of oseltamavir per primary. 5. Polyangiitis with granulomatosis. Continue home dose of prednisone. No indication to burst at this point in time. 6. Sleep disordered breathing: Overnight oximetry was reviewed. Patient did have some occasional oxygen desaturations during the night which may correspond to REM cycles. Would recommend that he increase his oxygen to 4 L/min bleed in conjunction with his CPAP and follow-up with his outpatient pulmonary provider. Repeat CPAP titration in the lab may be appropriate to determine optimal settings. Patient appears to be at his pulmonary baseline and appears to have achieved maximal benefit from inpatient stay. He is appropriate to dismiss from the hospital from pulmonary standpoint with outpatient pulmonary follow-up with his established provider. Feel free to contact us with questions or concerns Admission and Anticipated Discharge Date Admission Date: October 03, 2023 Subjective Patient seen and examined. EMR reviewed. The patient reports that he is doing well. He feels back to baseline. His breathing is markedly improved. He used CPAP last night without any difficulty. Oxygen bleed was used at 3 L/min. He is rarely coughing. He is not expectorating any significant phlegm. He denies any chest pain palpitations or shortness of breath. No significant lower extremity edema. He has a good appetite and is eating. He feels at his respiratory baseline and is asking about potential discharge. Review of Systems 2 Review of Systems: All systems reviewed & are unremarkable except as noted in Subjective Physical Exam 2 Constitutional: WD/WN, vitals as above Respiratory: no respiratory distress, no labored breathing, no cough and not tachypneic Auscultation: + diminished lung sounds and + crackles; no wheezes Cardiovascular: RRR, no murmur, no edema Psychiatric: A+Ox3, euthymic affect Results & Data Results & Data Vital Signs (Past 12 Hours) Vital Signs Temp Pulse Pulse Pulse Resp BP Pulse Ox 10/08/23 07:37 80 18 96 10/08/23 07:30 73 10/08/23 07:28 36.6 C 78 19 127/89 90 10/08/23 03:01 87 10/08/23 03:00 36.6 C 86 20 124/78 89 L 10/08/23 00:00 79 10/07/23 23:00 36.9 C 68 17 125/82 94 10/07/23 22:54 89 Pulse Ox O2 Del Method O2 Del Method O2 Flow Rate O2 Flow Rate 10/08/23 07:37 Nasal Cannula 3 10/08/23 07:30 10/08/23 07:28 Nasal Cannula 3 10/08/23 03:01 92 CPAP 4 10/08/23 03:00 CPAP 10/08/23 00:00 10/07/23 23:00 CPAP 3 10/07/23 22:54 93 CPAP 3 Laboratory Results 10/06/23 06:17 10/08/23 06:03 Diagnostic Findings Patient's overnight oximetry was reviewed. Lowest oxygen saturation recorded was 78% which is likely artifactual. He did spend about 45 minutes with an oxygen saturation below 88% and would recommend that he increase his oxygen to 4 L/min at night in conjunction with CPAP. PG Care Time/CCT Total # of Minutes Spent Total Time Spent with Patient: Total time spent is greater than 50% in coordination of care (as documented) at patient's floor/unit and/or counseling patient: Coding Level of Care Code 91136 SUB INP/OBS CARE 2/35MIN Diagnoses Chronic hypercapnic respiratory failure J96.12 Bronchiectasis J47.9 Restrictive lung disease J98.4
--- NOTE | 2023-10-08 17:04 | Discharge Summary ---
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 Per the patient, he caught a cold months ago since which his breathing has not been the same. ROS + recent travel ([place] recently returned), sick exposures, palpitations, cough, subjective fever, and night sweats. He denies nausea, leg swelling, or abdominal pain. 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 He also takes Bactrim prophylactically. On arrival to the emergency room, vital signs are notable for sinus tachycardia at 104 bpm, and oxygen saturation of 77% requiring 15 L of supplementary oxygen via nonrebreather mask. Notable labs include: Hypercarbia on VBG (60), K-3.1, BSG-165, T. bili-1.3, and hs troponin-42.8 (now down trended-38.1). Respiratory viral panel also returned positive for influenza A (H1-2009). WBC, procalcitonin, MRSA nares were all negative. CXR showed multifocal airspace consolidation bilaterally on top of chronic changes. Subsequent CTA chest showed "airspace consolidations in the bilateral lungs, consistent with multilobar pneumonia." Hospitalist service was then consulted for admission. On admission, patient corroborates HPI. ROS + cough, fatigue, mild headache. He denies headache, chest pain, shortness of breath, nausea, abdominal pain, or leg swelling. Principal Dx & Hospital Course #1 = Principal Diagnosis (1) Influenza A virus subtype H1 2009 pandemic strain present: 47 M with history of granulomatosis with polyangiitis (pulmonary manifestation) on long-term prednisone, DM2, HTN, who presented to the emergency room with worsening dyspnea on exertion x 2 weeks. Initially required 10 L of oxygen via mask, and admitted to the hospital for continued management of influenza A (H1N1) + multilobar pneumonia found on CT chest. Acute on chronic hypoxic and hypercarbic respiratory failure - due to influenza A and underlying pulmonary disease Home regimen is 2L O2 at night with CPAP, states his manager quality compliance Dr. Flores prefers he wear daytime O2 as well but he does not, baseline sats in low 90s at rest on room air - treated as below dyspnea resolved to baseline and hypoxia improved, may take several weeks to completely return to baseline - manager quality compliance consulted, felt hypercarbia was chronic and well compensated, recommended overnight oximetry which was performed and nocturnal oxygen with CPAP was increased to 4 L - 2 stop oxygen test was performed, home oxygen increased to 2 L at rest and 4 L with exertion - he will follow-up with Dr. Flores, he has appointment in about 2 weeks already scheduled - Dr. Mccollum recommended updating outpatient PFTs and following up with sleep medicine for another CPAP titration study (has been years) once symptoms return to baseline Influenza A ([id number]) -viral pneumonia, multilobar consolidation on imaging most changes on chest CT and serial chest x-ray are related to his chronic granulomatous disease, with component of viral pneumonia from influenza A * treated with oseltamivir 75 mg twice daily (x 5 days total) * Initially treated with augmentin and azithromycin, broadened to cefepime and azithro 10/05. Stopped 10/07 per recommendation of pulmonary. no clear evidence of bacterial pneumonia, had no leukocytosis, serial procalcitonin's negative,. * Continue home prednisone, bronchodilators Granulomatosis with polyangiitis (without renal involvement) -Predominantly pulmonary manifestation. On chronic daily prednisone, maintenance inhaler, as needed Bactrim. * Daily prednisone 5 mg was continued, thrice weekly Bactrim * Continue home Incruse Ellipta Type 2 Diabetes -Takes metformin 1000 mg twice daily. Last Hgb A1c-6.3% in * Home metformin resumed Hypertension, LE edema * Continue home hydrochlorothiazide 25 mg Hypokalemia replaced and resolved (2) Granulomatosis with polyangiitis without renal involvement: (3) Diabetes mellitus: (4) Hypertension: Discharge Exam PHYSICAL EXAMINATION Last 24h vital signs reviewed, see documentation in flowsheet General: sitting in chair HEENT: Normocephalic, atraumatic, pupils round and equal, sclerae anicteric, no conjunctival injection, moist mucus membranes Lungs: comfortable respirations, scattered crackles and squeaks in both bases, diminished with expiratory wheezes in bases, overall air movement much improved compared to several days ago Heart: Regular rate and rhythm, no murmurs. No JVD Abdomen: nondistended. Bowel sounds present. Extremities: Warm, dry, well-perfused. 1+ lower extremity edema. Neuro: Alert and oriented x 4, face symmetric, moves 4 extremities well, no asterixis Psych: Normal affect and behavior Updated Medication List Medication Instructions Recorded Confirmed Type cholecalciferol (vitamin D3) 125 5,000 units PO DAILY 04/25/19 10/03/23 History mcg (5,000 unit) tablet CPAP Machine #1 ea 10/10/19 08/23/23 Rx Oxygen Home #1 ea 11/22/19 08/23/23 Rx prednisone 5 mg tablet 5 mg PO DAILY #30 tabs 06/13/20 10/03/23 Rx Portable Oxygen #1 ea 07/25/20 08/23/23 Rx Flutter Valve #1 ea 08/05/20 08/23/23 Rx rituximab 10 mg/mL See Rx Instructions IV UD 01/28/21 10/03/23 History concentrate,intravenous blood sugar diagnostic (OneTouch #200 ea 03/10/22 08/23/23 Rx Verio test strips) lancets 30 gauge (OneTouch Delica #200 ea 03/10/22 08/23/23 Rx Plus Lancet) lancets 30 gauge (OneTouch Delica #200 ea 03/10/22 08/23/23 Rx Plus Lancet) hydrochlorothiazide 25 mg tablet 25 mg PO DAILY #90 tabs 12/20/22 10/03/23 Rx tiotropium bromide 2.5 2 puff inhalation DAILY #3 Inhalers 01/12/23 10/03/23 Rx mcg/actuation mist for inhalation (Spiriva Respimat) blood sugar diagnostic (OneTouch #200 ea 03/30/23 08/23/23 Rx Verio test strips) metformin 500 mg tablet 1,000 mg (2 x 500 mg) PO BIDWMEAL 07/13/23 10/03/23 Rx #360 tabs albuterol sulfate 90 mcg/actuation 2 puff inhalation Q6H PRN 10/03/23 10/03/23 History aerosol inhaler Shortness Of Breath Or Wheezing sulfamethoxazole 800 1 tab PO 3XWK 10/03/23 10/03/23 History mg-trimethoprim 160 mg tablet Hospital Stay Data Consultations 10/03/23 19:56 ED Decision to Admit Stat 10/07/23 07:56 Consult Pulmonology Routine Diagnostic Imagining Performed 10/03/23 18:02 CT angio chest PE protocol Stat Chest CTA 10/03/23 18:02 Exam(s): CTA CHEST IV Amt: 118ML OPTIRAY 320 EXAM: CT Angiography Chest With Intravenous Contrast CLINICAL HISTORY: Reason for exam: PE. TECHNIQUE: Axial computed tomographic angiography images of the chest with intravenous contrast. CTDI is 28.14 mGy and DLP is 824.38 mGy-cm. Automated exposure control was utilized for the study. A dose lowering technique was utilized adhering to the principles of ALARA. MIP reconstructed images were created and reviewed. COMPARISON: No relevant prior studies available. FINDINGS: Pulmonary arteries: Unremarkable. No acute pulmonary embolism. Aorta: No acute findings. No thoracic aortic aneurysm. Lungs: Airspace consolidations in the bilateral lungs, consistent with multilobar pneumonia. Pleural space: Unremarkable. No pleural effusion or pneumothorax. Heart: Unremarkable. No cardiomegaly. No significant pericardial effusion. No evidence of RV dysfunction. Bones/joints: No acute fracture. No dislocation. Soft tissues: Unremarkable. Lymph nodes: Unremarkable. No enlarged lymph nodes. Liver: Hepatic steatosis. IMPRESSION: 1. No acute pulmonary embolism. 2. Airspace consolidations in the bilateral lungs, consistent with multilobar pneumonia. Electronically signed by: Jay Vizcaino MD 10/03/23 19:43 PM Chest X-Ray 10/03/23 18:02 SINGLE VIEW CHEST CLINICAL HISTORY: Sepsis FINDINGS: An AP, portable, upright chest radiograph is compared to study dated 06/26/2019 and correlated with chest CT dated 10/15/2021. The cardiomediastinal silhouette is unremarkable. Multifocal parenchymal scarring is again seen throughout both lungs. There is also multifocal airspace consolidation which is significantly increased from previous. No large pleural effusion or pneumothorax is identified. The bony thorax is grossly intact. IMPRESSION: Multifocal airspace consolidation is seen throughout both lungs, superimposed on changes of chronic lung disease. Correlate clinically for evidence of pneumonia. Radiographic follow-up to resolution is recommended. ACT 112: Negative or not required by law. Electronically signed by: Antione Oseguera M.D. 10/03/2023 7:16 PM Chest X-Ray 10/07/23 07:48 XR chest 1V portable CLINICAL HISTORY: Hypoxia. History of granulomatous with polyangiitis. COMPARISON STUDY: Chest radiograph and chest CTs October 15, 2021 and October 03, 2023. FINDINGS: Low lung volumes are unchanged. No pneumothorax or pleural effusion is present. Cardiomediastinal silhouette is stable. Multifocal nodular opacities are similar to chest radiograph and chest CT of October 03, 2023. These are mildly increased when compared to earlier chest radiograph June 26, [address] of October 15, 2021. IMPRESSION: Multifocal nodular opacities, similar to chest radiograph of October 03, 2023 but increased when compared to study of June 26, 2019. The findings are largely chronic and related to known lung disease. However, the findings raise the possibility of a superimposed infectious process. Continued radiographic follow-up is recommended. ACT 112: Negative or not required by law. Electronically signed by: Leif Velasco M.D. 10/07/2023 8:17 AM 10/06/23 06:17 10/08/23 06:03 Pending Results Patient Have Any Pending Studies at Discharge: No Discharge Instructions Given to Patient (Per Discharging Provider) You were treated for Influenza A - this causes a viral pneumonia that exacerbated your underlying lung disease -you completed a course of tamiflu while in the hospital -you were treated with broad spectrum antibiotics as well, but we did not find any evidence of bacterial pneumonia so these were stopped Pulmonary (Dr. Mccollum) consulted - he recommended repeat PFTs as outpatient once influenza resolved and breathing is back to baseline and recommended you follow up with sleep medicine for a repeat CPAP titration study -at this time we recommend 2L of oxygen at rest, 4L with exertion, and 4L at night with your CPAP. This is based on testing by the respiratory therapist and overnight oxygen study on CPAP Follow up with Dr. Flores as scheduled Total Time Total Time Spent Total Time Spent (In Minutes): I personally spent: 40 minutes today on clinical care activities for discharge including: reviewing chart notes and vital signs reviewing labs discussion with youth care professional examining and counseling the patient writing orders documentation Coding Level of Care Code 52483 INP/OBS DISCH >30 MIN Diagnoses Influenza A virus subtype H1 2009 pandemic strain present J10.1 Granulomatosis with polyangiitis without renal involvement M31.30 Type 2 diabetes mellitus without complication, without long-term current use of insulin E11.9 Diabetes mellitus type: type 2 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
== END 2023-10-08 12:55 | disposition home or self-care (01) | DRG 193 ==
LOC: ED 16:57 → SUATTDRO 20:41 → EDINP 20:41 → 2N 22:58 → 2E 10-07 09:59